=== PATIENT | male | born 1960 | race Caucasian/White ===

== ENCOUNTER 2018-08-12 20:00 | Inpatient (IN) | payer OTHER ==
[~2018-08-12] VITALS: Ht 172.7 cm; Wt 80.9 kg
--- NOTE | 2018-08-12 22:05 | ERD ---
ER Documentation Chief Complaint Chief Complaint Anx, hx of calling 911 for stroke, w/out telling facility but no s/s HPI 58-year-old male transferred by box bender from his care facility for evaluation of acute neurologic symptoms. Patient is a difficult historian providing limited insight. He states he had multiple strokes in the past which of felt the same as this one feels like. He states that he was feeling numbness in his face but mostly on the right side of his face as well as an abnormal feeling of movement in his right upper extremity. He had no headache and no difficulty speaking. He states that the symptoms have been ongoing for over 24 hours with his last known well time approximately August 11, 2018 at approximately 5 PM ROS All systems reviewed and are negative except as per history of present illness. Allergies Allergies: Coded Allergies: No Known Allergy (Unverified , 08/12/18) PMhx/Soc History of Surgery: Yes (L BKA, endorectomy ) Anesthesia Reaction: No Hx Neurological Disorder: Yes (stroke) Hx Respiratory Disorders: No Hx Cardiac Disorders: Yes Hx Psychiatric Problems: No Hx Miscellaneous Medical Probl: Yes (DM, bladder infrection, osteomilitis) Hx Alcohol Use: No Hx Substance Use: No Hx Tobacco Use: No Smoking Status: Never smoker FmHx Noncontributory for chief complaint Physical Exam Vitals Vital Signs Date Temp Pulse Resp B/P (MAP) Pulse Ox O2 O2 Flow FiO2 Time Delivery Rate 08/12/18 98.4 68 18 152/72 100 20:17 (98) Physical Exam GENERAL: The patient is well developed and appropriate for usual state of health in no apparent distress HEENT: Pupils equal, round, and reactive to light. EOMI. There is no scleral icterus. NECK: C-spine is soft and supple, there is no meningismus. There is no cervical lymphadenopathy. LUNGS: Clear to auscultation bilaterally. There are no rales, wheezes or rhonchi. HEART: Regular rate and rhythm, no murmurs, clicks, rubs or gallops. ABDOMEN: Soft, non-tender, non-distended. There are bowel sounds in all four quadrants. No rebound or guarding. EXTREMITIES: There is no peripheral cyanosis or edema. No focal swelling or erythema. Status post BKA of the left leg NEURO: Patient is awake and alert. There is a flexion contracture in the left upper extremity. Patient has a flexion contracture in the left lower extremity. The right upper extremity appears to move normally. The right lower extremity appears to move normally. SKIN: There is no apparent rash or petechiae. HEME/LYMPHATIC: There is no evidence of excessive bruising or lymphedema. PSYCHIATRIC: Patient has an anxious affect and demeanor. He has some insight with limited judgment. No agitation Result Diagram: 08/12/182140 Results 24 hrs Laboratory Tests Test 08/12/18 21:41 08/12/18 21:44 White Blood Count 7.2 10^3/ul Red Blood Count 3.33 10^6/ul Hemoglobin 9.9 g/dl Hematocrit 29.7 % Mean Corpuscular Volume 89.2 fl Mean Corpuscular Hemoglobin 29.7 pg Mean Corpuscular Hemoglobin Concent 33.3 g/dl Red Cell Distribution Width 12.7 % Platelet Count 258 10^3/UL Mean Platelet Volume 9.8 fl Immature Granulocytes % 0.400 % Neutrophils % 68.3 % Lymphocytes % 17.3 % Monocytes % 8.4 % Eosinophils % 5.0 % Basophils % 0.6 % Nucleated Red Blood Cells % 0.0 /100WBC Immature Granulocytes # 0.030 10^3/ul Neutrophils # 4.9 10^3/ul Lymphocytes # 1.2 10^3/ul Monocytes # 0.6 10^3/ul Eosinophils # 0.4 10^3/ul Basophils # 0.0 10^3/ul Nucleated Red Blood Cells # 0.0 10^3/ul Bedside Glucose 73 mg/dL Procedures/MDM Patient was taken to a room, seen and evaluated. Comfort measures were i nitiated. A stroke workup was initiated. As he was out of the 24-hour window, code stroke was not initiated Diagnostic tests were ordered and reviewed. 3 LEAD RHYTHM STRIP: Normal sinus rhythm without ectopy EK lead EKG reviewed by myself: Normal Sinus Rhythm Normal [place] and intervals No ST elevation, depression, or T wave inversion Impression: Normal EKG RADIOLOGY: Reviewed with the radiologist CONSULTATION: Hospitalist was notified for admission REEVALUATION: Diagnostic tests were appreciated. Patient remained unchanged neurologically MED[employer] DECISION MAKIN-year-old male with a history of multiple strokes in the past presents to the emergency department with acute neurologic symptoms. His symptoms are nonspecific and do not seem necessarily to be of central cause. However, given his history of ischemia I cannot rule this out entirely. This does appear to be mostly anxiety related, but he is easily calmed without significant intervention. Given his history, he will be admitted for observation for further neurologic diagnostic workup. Departure Diagnosis: Primary Impression: Anxiety Additional Impression: Weakness Condition: Fair GLORIA,JASON Aug 12, 2018 22:05
[2018-08-12] MEDS ORDERED: ACET325T45 PO (22:10)
[2018-08-12] MEDS ORDERED: AMLO5TAB4 PO (22:11)
[2018-08-12] MEDS ORDERED: ARGI1POW19 PO (22:12)
[2018-08-12] MEDS ORDERED: INSU100I33 SC (22:13)
[2018-08-12] MEDS ORDERED: ATOR-2 PO (22:13)
[2018-08-12] MEDS ORDERED: BISA10SU75 PR (22:14)
[2018-08-12] MEDS ORDERED: MAGN400O19 PO (22:14)
[2018-08-12] MEDS ORDERED: NA P230E RC (22:15)
[2018-08-12] MEDS ORDERED: CAPT50TA3 PO (22:16)
[2018-08-12] MEDS ORDERED: CARV25TA79 PO (22:17)
[2018-08-12] MEDS ORDERED: CRAN450T7 PO (22:18)
[2018-08-12] MEDS ORDERED: FAMO20TA18 PO (22:19)
[2018-08-12] MEDS ORDERED: DOCU-159 PO (22:19)
[2018-08-12] MEDS ORDERED: GABA300C16 PO (22:20)
[2018-08-12] MEDS ORDERED: SACC250C PO (22:20)
[2018-08-12] MEDS ORDERED: HEPA500021 IJ (22:21)
[2018-08-12] MEDS ORDERED: LEVO500T48 PO (22:22)
[2018-08-12] MEDS ORDERED: METF100010 PO (22:23)
[2018-08-12] MEDS ORDERED: MELA3TAB17 PO (22:23)
[2018-08-12] MEDS ORDERED: NITR0.4T32 SL (22:24)
[2018-08-12] MEDS ORDERED: MULT-105 PO (22:24)
[2018-08-12] MEDS ORDERED: HYDR-4011 PO (22:25)
[2018-08-12] MEDS ORDERED: OMEP20CA16 PO (22:26)
[2018-08-12] MEDS ORDERED: POLY17PO6 PO (22:26)
[2018-08-12] MEDS ORDERED: AMIN30LI PO (22:27)
[2018-08-12] MEDS ORDERED: SENN-120 PO (22:28)
[2018-08-12] MEDS ORDERED: TRAM50TA PO (22:29)
[2018-08-12] MEDS ORDERED: SERT25TA83 PO (22:29)
[2018-08-12] MEDS ORDERED: NACL 0.9% 3 ML SYG IV SCH (22:30)
[2018-08-12] MEDS ORDERED: DOCUSATE SODIUM 100 MG CAP PO PRN (22:30)
[2018-08-12] MEDS ORDERED: LORAZEPAM 2 MG INJ IV PRN (22:30)
[2018-08-12] MEDS ORDERED: ONDANSETRON 4 MG INJ IV PRN (22:30)
[2018-08-12] MEDS ORDERED: BISACODYL (EC) 5 MG TAB PO PRN (22:30)
[2018-08-12] MEDS ORDERED: ACETAMINOPHEN 325 MG TAB PO PRN (22:30)
[2018-08-12] MEDS ORDERED: TUBE5VIA3 ID (22:34)
[2018-08-12] MEDS ORDERED: VITA-123 SL (22:35)
[2018-08-12] MEDS ORDERED: ASC500 PO (22:36)
[2018-08-12] MEDS ORDERED: ZINC220T PO (22:36)
[2018-08-12] MEDS ORDERED: INSU100C SQ (22:41)
[2018-08-13] VITALS (11 sets, daily range): BP systolic 130–172; BP diastolic 61–77; PULSE 63–73; RESP 17–20; Ht 172.7 cm; Wt 80.9 kg
--- NOTE | 2018-08-13 03:45 | HP ---
Date/Time of Note Date/Time of Note DATE: 08/13/18 TIME: 03:30 Assessment/Plan VTE Prophylaxis SCD applied (from Ns): Yes Pharmacological prophylaxis: NA/contraindicated Pharm contraindication: low risk/ambulating Assessment/Plan Hospital Course This is a 58-year-old male being admitted to to the telemetry floor for observat ion for: #1 right upper extremity weakness: anxiety versus TIA/CVA. At the current time patient has regained right upper extremity strength and movement. He reports resolution of his facial numbness as well. Given his extensive stroke history and current symptoms as well as old CT brain findings, we will proceed with an MRI of the brain. Carotid Doppler ultrasound. Echocardiogram Doppler study. Permissive hypertension. Will check hemoglobin A1c, lipid panel, TSH, neurology consultation. #2 history of multiple CVAs: Patient has signs of old infarcts on CT brain. Patient has a history of left upper extremity contracture. Continue aspirin, statin, allow for permissive hypertension at the current time. #3 hypertension: We will hold patient's blood pressure medications, as needed hy dralazine for systolic greater than 220/120 #4 GRACE: unknown baseline creatine. hold KRISTEL inhibitor. Monitor renal function. avoid nsaids, nephrotoxins. #5 diabetes mellitus: We will check hemoglobin A1c, insulin sliding scale, resume home insulin regimen,, hold oral medications, patient is status post left BKA #6 hyperlipidemia: Continue statin #7 Normocytic anemia: no signs of acute bleeding. follow up outpatient #8 DVT GI prophylaxis: SCDs, no GI prophylaxis indicated Further treatment strategy will be implemented as per the clinical course. Result Diagram: 08/12/18214008/12/182140 Results 24hrs Laboratory Tests Test 08/12/18 21:40 08/12/18 21:41 08/12/18 21:44 Prothrombin Time 13.4 Prothrombin Time Ratio 1.0 INR International Normalized Ratio 1.01 Activated Partial Thromboplast Time 29.7 Hemoglobin A1c 5.3 White Blood Count 7.2 Red Blood Count 3.33 L Hemoglobin 9.9 L Hematocrit 29.7 L Mean Corpuscular Volume 89.2 Mean Corpuscular Hemoglobin 29.7 Mean Corpuscular Hemoglobin Concent 33.3 Red Cell Distribution Width 12.7 Platelet Count 258 Mean Platelet Volume 9.8 Immature Granulocytes % 0.400 Neutrophils % 68.3 Lymphocytes % 17.3 Monocytes % 8.4 Eosinophils % 5.0 Basophils % 0.6 Nucleated Red Blood Cells % 0.0 Immature Granulocytes # 0.030 Neutrophils # 4.9 Lymphocytes # 1.2 Monocytes # 0.6 Eosinophils # 0.4 Basophils # 0.0 Nucleated Red Blood Cells # 0.0 Sodium Level 142 Potassium Level 4.6 Chloride Level 111 H Carbon Dioxide Level 20 L Anion Gap 11 Blood Urea Nitrogen 41 H Creatinine 1.66 H Est Glomerular Filtrat Rate mL/min 43 L Glucose Level 69 L Calcium Level 9.6 Troponin I < 0.012 Triglycerides Level 62 Cholesterol Level 82 L LDL Cholesterol, Calculated 35 HDL Cholesterol 35 Cholesterol/HDL Ratio 2.3 Bedside Glucose 73 HPI/ROS Admit Date/Time Admit Date/Time Aug 12, 2018 at 22:06 Hx of Present Illness Chief complaint: Right-sided weakness Patient is a poor historian, the following history was obtained from ED physician documentation as well as from the patient. This is a 58-year-old male with a past medical history of multiple strokes as per him who presented from [facility] [place] complaining of symptoms of right upper extremity paralysis that occurred more than 24 hours ago on August 11 with a last known well time of approximately 5 PM on the day patient has a history of multiple strokes in the past according to him and with resultant left upper extr emity contracture. As per the ED physician documentation the patient has a history of calling 911 from the facility without the facility knowing. Patient also reported that he was noticing numbness in his face and lips. He did not have any change in his speech. Upon my examination of the patient at the bedside the patient is now able to move his right upper extremity and he continues to be able to move his right lower extremity. He also is able to move his left lower extremity. He does not have any facial drooping or any speech abnormalities. Allergies: NKDA Medications: See Jul Const: As per HPI Eyes : No pain discharge or redness or change in visual acuity ENT: No pain, sore throat, congestion, congestion, dysphagia or discharge Respiratory: No shortness of breath, cough, sputum, wheezing, or pleuritic pain Cardiovascular: No chest pain, palpitation, PND, or edema GI : no change in appetite, abdominal pain, nausea, vomiting, diarrhea, constipation, or change in the color his stool Genitourinary: No dysuria, hematuria, flank pain , discharge or CVA tenderness Musculoskeletal: No joint pain, back pain, neck pain, restricted range of motion in neck or joints Skin: No rash, bruising or hives Neuro: As per HPI Endocrine: No polyuria, polydipsia, temperature intolerance Psych: No hallucination, depression, anxiety or suicidal ideation PMH/Family/Social Past Medical History 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, hypertension, diabetes mellitus, hyperlipidemia, 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 Medications Current Medications IV Flush (NS 3 ml) 3 ml PER PROTOCOL IV ; Start 08/12/18 at 22:30 Lorazepam (Ativan) 0.5 mg Q6H PRN IV .ANXIETY; Start 08/12/18 at 22:30 Ondansetron HCl (Zofran Inj) 4 mg Q6H PRN IV NAUSEA/VOMITING; Start 08/12/18 at 22:30 Acetaminophen (Tylenol Tab) 650 mg Q6H PRN PO .PAIN 1-3 OR TEMP; Start 08/12/18 at 22:30 Docusate Sodium (Colace) 100 mg Q12H PRN PO .CONSTIPATION; Start 08/12/18 at 22:30 Bisacodyl (Dulcolax) 5 mg DAILY PRN PO .CONSTIPATION; Start 08/12/18 at 22:30 Coded Allergies: No Known Allergy (Unverified , 08/12/18) Past Surgical History Left BKA Family History Significant Family History: no pertinent family hx Social History Alcohol Use: none Smoking Status: Never smoker Drug Use: none Exam/Review of Systems Vital Signs Vitals Vital Signs Date Temp Pulse Resp B/P (MAP) Pulse Ox O2 O2 Flow FiO2 Time Delivery Rate 08/13/18 98.0 70 15 154/64 99 Room Air 01:41 (94) Exam Exam General: The patient is currently sitting in bed in no acute distress, he is conversive HEENT: Atraumatic, normocephalic. The pupils are equal, round and reactive. Extraocular motor are intact Neck: Supple with full range of motion. No rigidity or meningismus Lungs: Clear to auscultation bilaterally no crackles rales or wheezing Heart: Normal S1-S2, Regular rhythm and rate. Abdomen: Soft , nontender, nondistended , bowel sounds are present. No guarding no rebound tenderness , No masses or organomegaly. No costovertebral temporal angle mass Extremities: Left BKA Neurologic: Normal mental status, speech normal, strength 5 out of 5 in the right upper and lower extremities, patient is able to move his left lower extremity, his left upper extremity is contracted which is chronic Additional Comments EK lead EKG Normal Sinus Rhythm Normal [place] and intervals No ST elevation, depression, or T wave inversion Impression: Normal EKG PROCEDURE: CT Brain without contrast. CLINICAL INDICATION: Altered level of consciousness TECHNIQUE: A CT of the brain was performed on a multidetector CT scanner utilizing axial imaging from the skull base through the vertex without IV contrast. Multiplanar reformatted images were made. Images were reviewed on a PACS workstation. The CTDIvol is 37 mGy and the DLP is 634 mGycm. DICOM images are available. One or more of the following dose reduction techniques were utilized: 1.) Automated exposure control 2.) Adjustment of the mA +/- kV according to patient's size 3.) Use of iterative reconstruction technique. COMPARISON: None FINDINGS: There is moderate to severe diffuse cerebral volume loss with sulcal and ventricular dilatation. No discrete extra-axial fluid collection or masses seen. There is ex vacuo dilatation of the right lateral ventricle. Noted is an old right MCA distribution infarct with extensive encephalomalacia. There are is an old infarct in the inferior left cerebellar hemisphere. Periventricular white matter disease is seen in both cerebral hemispheres. There is no associated mass effect. No intracranial hemorrhage is seen. There is normal aeration of the visualized paranasal sinuses. The patient is status post right scleral banding. IMPRESSION: No intracranial hemorrhage, mass or evidence of acute transcortical infarct. Old right MCA distribution infarct with extensive encephalomalacia and ex vacuo dilatation of the right lateral ventricle. Old infarct inferior left cerebellar hemisphere. Atrophy. White matter disease compatible with chronic small vessel ischemia. .Clay Mariano MD, MD Date Time Electronically viewed and signed by .Clay aMriano MD, MD on 08/12/2018 20:57 .A/ CC: TRACEY CASTRO [id number] PROCEDURE: One view chest radiograph. CLINICAL INDICATION: Possible stroke TECHNIQUE: An AP view of the chest was obtained. The patient has forearm and fist clenched over the left chest COMPARISON: None. FINDINGS: Mediastinum: Median sternotomy wires Heart size: Normal. Pulmonary vasculature: No visible engorgement. Lungs: Clear. Costophrenic sulci: Clear. Bony structures: Grossly unremarkable for age. IMPRESSION: 1. Unremarkable single view chest. RPTAT:AAJJ Physician Noah Date Time Electronically viewed and signed by Physician Noah on 08/12/2018 21:19 GW/ CC: TRACEY CASTRO [id number] DAMON MARTIN Aug 13, 2018 03:40
[2018-08-13] MEDS ORDERED: INSULIN GLARGINE [LANTus] (100 UNITS/ML) SYG SC SCH ×2 (04:00)
[2018-08-13] MEDS ORDERED: GLUCOSE GEL 15 GRAM TUBE BUCCAL PRN (04:00)
[2018-08-13] MEDS ORDERED: hydrALAzine 20 MG INJ IV PRN (04:00)
[2018-08-13] MEDS ORDERED: DEXTROSE 50% 50 ML SYRINGE IV PRN ×2 (04:00)
[2018-08-13] MEDS ORDERED: GLUCAGON 1 MG INJ IM PRN (04:00)
[2018-08-13] MEDS ORDERED: MAGNESIUM HYDROXIDE 30ML CUP PO PRN (04:00)
[2018-08-13] MEDS ORDERED: INSULIN GLARGINE [LANtus] 3 ML PEN SC SCH (04:00)
[2018-08-13] MEDS ORDERED: GLUCOSE GEL 15 GRAM TUBE PO PRN ×2 (04:00)
[2018-08-13] MEDS ORDERED: BISACODYL 10 MG SUPP PR PRN (04:00)
[2018-08-13] MEDS ORDERED: SOD CHLORIDE 0.9% 500 ML IV ONE (04:30)
[2018-08-13] MEDS: traMADol 50 MG TAB PO PRN ×2 (04:48→09:02)
[2018-08-13] MEDS: INSULIN ASPART [NOVOLOG] 3 ML PEN SC SCH ×4 (08:00→20:16)
[2018-08-13] MEDS: GABAPENTIN 300 MG CAP PO SCH ×3 (09:00→20:15)
[2018-08-13] MEDS ORDERED: NON-FORMULARY/PATIENT OWN MED (Arginine/Ascorbate Sod/Vite AC (Arginaid Powder) 1 EACH) PO SCH (09:00)
[2018-08-13] MEDS ORDERED: NON-FORMULARY/PATIENT OWN MED (Amino Acids/Protein Hydrolys (Pro-Stat Liquid) 30 ML) PO SCH (09:00)
[2018-08-13] MEDS: SERTRALINE 50 MG TAB PO SCH (09:01)
[2018-08-13] MEDS: ZINC SULFATE 220 MG CAP PO SCH (09:01)
[2018-08-13] MEDS: DOCUSATE SODIUM 100 MG CAP PO SCH ×2 (09:01→20:16)
[2018-08-13] MEDS: SACCHAROMYCES BOULARDII 250 MG CAP PO SCH ×2 (09:02→20:15)
[2018-08-13] MEDS: POLYETHYLENE GLYCOL 17 GM PACKET PO SCH (09:02)
--- NOTE | 2018-08-13 11:02 | PN ---
Date/Time of Note Date/Time of Note DATE: 08/13/18 TIME: 10:39 Assessment/Plan VTE Prophylaxis SCD applied (from Nsg): Yes Pharmacological prophylaxis: heparin Lines/Catheters IV Catheter Type (from Nrsg): Saline Lock Urinary Cath still in place: No Assessment/Plan Hospital Course S: R sided weakness and numbness has resolved O: Constitutional: alert, oriented, no distressed Head: atraumatic, normocephalic Neck: non-tender, supple Respiratory: clear to auscultation Cardiovascular: regular rate and rhythm Gastrointestinal: S/ NT / ND / +BS Extremities: LUE is contracted with diffuse msc wasting LLE is s/p BKA, carleen still in place assessment and plan 58-year-old male with a past medical history of multiple strokes as per him who presented from [facility] complaining of symptoms of right upper extremity flaccidity and numbness that occurred more than 24 hours ago 1. TIA -symptoms are completely resolved at this time -patient is high risk for strokes and does have carotid aa disease, will need Vascular sx review 2. 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 -this was about 1 year ago, -needs MRA or CTA per vasc sx Dr Kim and then he can f/u with his own Vasc sx Dr Russell who w[place]ks [place] -Patient also has GRACE and will need Nephro review 3. 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 Severe PAD -s/p recent L BKA after multiple angiograms and toe amputations and recent treatment, completed 1 month ago for osteomyelitis in the stump -patient still has carleen in L stump -also on chronic [place] for phantom limb pain 5. remote smoker: quit about 1 year ago 6. GRACE on CKD ? -patient states he has CKD but still gets multiple contrast studies -will get Nephro consult -Creatinine improving Dispo: -Monitor Creatitine and discuss imaging options with Nephro (i.e MRA versus CTA) -per Dr Kim, if patient needs intervention, he will f/u with his surgeon Dr Russell at [place] Result Diagram: 08/13/18 0527 08/13/18 0527 Results 24hrs Laboratory Tests Test 08/12/18 21:40 08/12/18 21:41 08/12/18 21:44 08/13/18 04:40 Prothrombin Time 13.4 Prothrombin Time 1.0 Ratio INR International 1.01 Normalized Ratio Activated 29.7 Partial Thromboplast Time Hemoglobin A1c 5.3 White Blood Count 7.2 Red Blood Count 3.33 L Hemoglobin 9.9 L Hematocrit 29.7 L Mean Corpuscular 89.2 Volume Mean Corpuscular 29.7 Hemoglobin Mean Corpuscular 33.3 Hemoglobin Concent Red Cell 12.7 Distribution Width Platelet Count 258 Mean Platelet Volume 9.8 Immature 0.400 Granulocytes % Neutrophils % 68.3 Lymphocytes % 17.3 Monocytes % 8.4 Eosinophils % 5.0 Basophils % 0.6 Nucleated Red Blood 0.0 Cells % Immature 0.030 Granulocytes # Neutrophils # 4.9 Lymphocytes # 1.2 Monocytes # 0.6 Eosinophils # 0.4 Basophils # 0.0 Nucleated Red Blood 0.0 Cells # Sodium Level 142 Potassium Level 4.6 Chloride Level 111 H Carbon Dioxide Level 20 L Anion Gap 11 Blood Urea Nitrogen 41 H Creatinine 1.66 H Est Glomerular 43 L Filtrat Rate mL/min Glucose Level 69 L Calcium Level 9.6 Troponin I < 0.012 Triglycerides Level 62 Cholesterol Level 82 L LDL Cholesterol, 35 Calculated HDL Cholesterol 35 Cholesterol/HDL 2.3 Ratio Bedside Glucose 73 81 Test 08/13/18 05:27 08/13/18 06:10 08/13/18 08:08 White Blood Count 6.6 Red Blood Count 2.78 L Hemoglobin 8.1 L Hematocrit 24.7 L Mean Corpuscular 88.8 Volume Mean Corpuscular 29.1 Hemoglobin Mean Corpuscular 32.8 Hemoglobin Concent Red Cell 12.8 Distribution Width Platelet Count 220 Mean Platelet Volume 9.8 Immature 0.900 H Granulocytes % Neutrophils % 66.0 Lymphocytes % 19.5 Monocytes % 8.2 Eosinophils % 4.8 Basophils % 0.6 Nucleated Red Blood 0.0 Cells % Immature 0.060 H Granulocytes # Neutrophils # 4.4 Lymphocytes # 1.3 Monocytes # 0.5 Eosinophils # 0.3 Basophils # 0.0 Nucleated Red Blood 0.0 Cells # Sodium Level 143 Potassium Level 3.9 Chloride Level 111 H Carbon Dioxide Level 19 L Anion Gap 13 Blood Urea Nitrogen 37 H Creatinine 1.36 H Est Glomerular 54 L Filtrat Rate mL/min Glucose Level 89 Hemoglobin A1c 5.5 Calcium Level 8.5 Magnesium Level 1.5 L Total Bilirubin 0.1 L Direct Bilirubin 0.00 Indirect Bilirubin 0.1 Aspartate Amino 28 Transf (AST/SGOT) Alanine 32 Aminotransferase (AL T/SGPT) Alkaline Phosphatase 64 Total Protein 6.3 Albumin 3.0 L Globulin 3.30 H Albumin/Globulin 0.90 Ratio Thyroid Stimulating 1.750 Hormone (TSH) Urine Color YELLOW Urine Clarity CLEAR Urine pH 5.0 Urine Specific 1.013 [place] Urine Ketones NEGATIVE Urine Nitrite NEGATIVE Urine Bilirubin NEGATIVE Urine Urobilinogen NEGATIVE Urine Leukocyte NEGATIVE Esterase Urine Microscopic 0 RBC Urine Microscopic 5 WBC Urine Hemoglobin NEGATIVE Urine Glucose NEGATIVE Urine Total Protein 1+ H Urine Opiates Screen Positive Urine Barbiturates Negative Urine Amphetamines Negative Screen Urine Negative Benzodiazepines Screen Urine Cocaine Screen Negative Urine Cannabinoids Negative Bedside Glucose 86 Exam/Review of Systems Exam Vitals Vital Signs Date Temp Pulse Resp B/P (MAP) Pulse Ox O2 O2 Flow FiO2 Time Delivery Rate 08/13/18 98.7 68 18 134/63 98 Room Air 07:26 (86) Intake and Output 08/12/18 08/12/18 08/13/18 1515:00 23:00 07:00 IntakeIntake Total 500 ml OutputOutput Total 600 ml BalanceBalance -100 ml Results Results 24hrs Laboratory Tests Test 08/12/18 21:40 08/12/18 21:41 08/12/18 21:44 08/13/18 04:40 Prothrombin Time 13.4 Prothrombin Time 1.0 Ratio INR International 1.01 Normalized Ratio Activated 29.7 Partial Thromboplast Time Hemoglobin A1c 5.3 White Blood Count 7.2 Red Blood Count 3.33 L Hemoglobin 9.9 L Hematocrit 29.7 L Mean Corpuscular 89.2 Volume Mean Corpuscular 29.7 Hemoglobin Mean Corpuscular 33.3 Hemoglobin Concent Red Cell 12.7 Distribution Width Platelet Count 258 Mean Platelet Volume 9.8 Immature 0.400 Granulocytes % Neutrophils % 68.3 Lymphocytes % 17.3 Monocytes % 8.4 Eosinophils % 5.0 Basophils % 0.6 Nucleated Red Blood 0.0 Cells % Immature 0.030 Granulocytes # Neutrophils # 4.9 Lymphocytes # 1.2 Monocytes # 0.6 Eosinophils # 0.4 Basophils # 0.0 Nucleated Red Blood 0.0 Cells # Sodium Level 142 Potassium Level 4.6 Chloride Level 111 H Carbon Dioxide Level 20 L Anion Gap 11 Blood Urea Nitrogen 41 H Creatinine 1.66 H Est Glomerular 43 L Filtrat Rate mL/min Glucose Level 69 L Calcium Level 9.6 Troponin I < 0.012 Triglycerides Level 62 Cholesterol Level 82 L LDL Cholesterol, 35 Calculated HDL Cholesterol 35 Cholesterol/HDL 2.3 Ratio Bedside Glucose 73 81 Test 08/13/18 05:27 08/13/18 06:10 08/13/18 08:08 White Blood Count 6.6 Red Blood Count 2.78 L Hemoglobin 8.1 L Hematocrit 24.7 L Mean Corpuscular 88.8 Volume Mean Corpuscular 29.1 Hemoglobin Mean Corpuscular 32.8 Hemoglobin Concent Red Cell 12.8 Distribution Width Platelet Count 220 Mean Platelet Volume 9.8 Immature 0.900 H Granulocytes % Neutrophils % 66.0 Lymphocytes % 19.5 Monocytes % 8.2 Eosinophils % 4.8 Basophils % 0.6 Nucleated Red Blood 0.0 Cells % Immature 0.060 H Granulocytes # Neutrophils # 4.4 Lymphocytes # 1.3 Monocytes # 0.5 Eosinophils # 0.3 Basophils # 0.0 Nucleated Red Blood 0.0 Cells # Sodium Level 143 Potassium Level 3.9 Chloride Level 111 H Carbon Dioxide Level 19 L Anion Gap 13 Blood Urea Nitrogen 37 H Creatinine 1.36 H Est Glomerular 54 L Filtrat Rate mL/min Glucose Level 89 Hemoglobin A1c 5.5 Calcium Level 8.5 Magnesium Level 1.5 L Total Bilirubin 0.1 L Direct Bilirubin 0.00 Indirect Bilirubin 0.1 Aspartate Amino 28 Transf (AST/SGOT) Alanine 32 Aminotransferase (AL T/SGPT) Alkaline Phosphatase 64 Total Protein 6.3 Albumin 3.0 L Globulin 3.30 H Albumin/Globulin 0.90 Ratio Thyroid Stimulating 1.750 Hormone (TSH) Urine Color YELLOW Urine Clarity CLEAR Urine pH 5.0 Urine Specific 1.013 [place] Urine Ketones NEGATIVE Urine Nitrite NEGATIVE Urine Bilirubin NEGATIVE Urine Urobilinogen NEGATIVE Urine Leukocyte NEGATIVE Esterase Urine Microscopic 0 RBC Urine Microscopic 5 WBC Urine Hemoglobin NEGATIVE Urine Glucose NEGATIVE Urine Total Protein 1+ H Urine Opiates Screen Positive Urine Barbiturates Negative Urine Amphetamines Negative Screen Urine Negative Benzodiazepines Screen Urine Cocaine Screen Negative Urine Cannabinoids Negative Bedside Glucose 86 Imaging Imaging PROCEDURE: MR BRAIN WITHOUT CONTRAST CLINICAL INDICATION: 58-year-old male with altered level of consciousness. TECHNIQUE: An MRI of the brain was performed on a GE Signa HDxt 3T scanner utilizing the following sequences: Sagittal T1, axial T2, axial FLAIR, coronal gradient echo, sagittal FLAIR, axial T1 and axial EPI diffusion (b1000) with ADC maps. The images reviewed on a PACS workstation. COMPARISON: CT brain August 12, 2018 at 03:53 p.m. FINDINGS: There is extensive encephalomalacia and surrounding gliosis throughout the right hemisphere involving the frontal parietal, temporal and occipital regions most likely from prior right internal carotid artery infarct. There is ex vacuo dilatation of the right lateral ventricle. There is absence of the normal flow void identified within the right internal carotid throughout its course consistent with occlusion. There is focal encephalomalacia within the left inferior cerebellum consistent with a prior left posterior inferior cerebellar artery infarct. There is a smaller focal area of encephalomalacia within the medial aspect of the right inferior cerebellum consistent with a prior infarct. There is moderate prominence of the sulci and cisternal spaces consistent with volume loss with compensatory ventricular enlargement. There is no significant midline shift. There are periventricular, deep white matter and pontine foci of abnormal signal intensity on the T2-weighted and FLAIR sequences consistent with microangiopathic ischemic changes. There is no evidence for restricted diffusion to suggest an acute vascular event. There is no significant susceptibility artifact to suggest blood products. There is evidence for right globe scleral banding. There is minimal mucosal thickening within the ethmoid air cells bilaterally. No air-fluid levels are noted. IMPRESSION: 1. Old right internal carotid artery infarct with extensive encephalomalacia and gliosis throughout the right hemisphere. 2. Old bilateral focal inferior cerebellar infarcts more prominently on the left side. 3. Moderate diffuse volume loss. 4. Microangiopathic ischemic changes. 5. Occluded right internal carotid artery. 6. Prior right globe scleral banding. 7. Minimal mucosal thickening ethmoid air cells. .Rodolfo Brush MD, Date Time Electronically viewed and signed by .Rodolfo Brush MD, on 08/13/2018 03:23 .M/ CC: DAMON MARTIN [id number] Medications Medication Current Medications IV Flush (NS 3 ml) 3 ml PER PROTOCOL IV ; Start 08/12/18 at 22:30 Lorazepam (Ativan) 0.5 mg Q6H PRN IV .ANXIETY; Start 08/12/18 at 22:30 Ondansetron HCl (Zofran Inj) 4 mg Q6H PRN IV NAUSEA/VOMITING; Start 08/12/18 at 22:30 Acetaminophen (Tylenol Tab) 650 mg Q6H PRN PO .PAIN 1-3 OR TEMP; Start 08/12/18 at 22:30 Docusate Sodium (Colace) 100 mg Q12H PRN PO .CONSTIPATION; Start 08/12/18 at 22:30 Bisacodyl (Dulcolax) 5 mg DAILY PRN PO .CONSTIPATION; Start 08/12/18 at 22:30 Atorvastatin Calcium (Lipitor) 80 mg QHS PO ; Start 08/13/18 at 21:00 Bisacodyl (Dulcolax Supp) 10 mg Q24H PRN [place] NEEDED; Start 08/13/18 at 04:00 Docusate Sodium (Colace) 100 mg BID PO Last administered on 08/13/18at 09:01; Admin Dose 100 MG; Start 08/13/18 at 09:00 Famotidine (Pepcid) 20 mg QHS PO ; Start 08/13/18 at 21:00 Gabapentin (Neurontin) 600 mg TID PO Last administered on 08/13/18at 09:00; Admin Dose 600 MG; Start 08/13/18 at 09:00 Magnesium Hydroxide (Milk Of Mag) 30 ml Q24H PRN PO NEEDED; Start 08/13/18 at 04:00 Polyethylene Glycol (Miralax) 17 gm DAILY PO Last administered on 08/13/18at 09:02; Admin Dose 17 GM; Start 08/13/18 at 09:00 Saccharomyces Boulardii (Florastor) 250 mg BID PO Last administered on 08/13/18at 09:02; Admin Dose 250 MG; Start 08/13/18 at 09:00 Senna (Senokot) 1 tab QHS PO ; Start 08/13/18 at 21:00 Sertraline HCl (Zoloft) 25 mg DAILY PO Last administered on 08/13/18at 09:01; Admin Dose 25 MG; Start 08/13/18 at 09:00 Tramadol HCl (Ultram) 50 mg Q4H PRN PO PAIN LEVEL 4-7/10 Last administered on 08/13/18at 09:02; Admin Dose 50 MG; Start 08/13/18 at 04:00 Zinc Sulfate (Zinc Sulfate) 220 mg DAILY PO Last administered on 08/13/18at 09:01; Admin Dose 220 MG; Start 08/13/18 at 09:00 Diagnostic Test (Pha) (Accu-Chek) 1 ea 02 XX ; Start 08/14/18 at 02:00 Insulin Aspart (Novolog Insulin Pen) NOVOLOG *MILD* ALGORITHM WITH MEALS BEDTIME SC ; Start 08/13/18 at 08:00 Hydralazine HCl (Apresoline) 10 mg Q4H PRN IV ELEVATED BLOOD PRESSURE; Start 08/13/18 at 04:00 Miscellaneous Information 1 ea NOTE XX ; Start 08/13/18 at 04:00 Glucose (Glutose) 15 gm Q15M PRN PO DECREASED GLUCOSE; Start 08/13/18 at 04:00 Glucose (Glutose) 22.5 gm Q15M PRN PO DECREASED GLUCOSE; Start 08/13/18 at 04:00 Dextrose (D50w Syringe) 25 ml Q15M PRN IV DECREASED GLUCOSE; Start 08/13/18 at 04:00 Dextrose (D50w Syringe) 50 ml Q15M PRN IV DECREASED GLUCOSE; Start 08/13/18 at 04:00 Glucagon (Glucagen) 1 mg Q15M PRN IM DECREASED GLUCOSE; Start 08/13/18 at 04:00 Glucose (Glutose) 15 gm Q15M PRN BUCCAL DECREASED GLUCOSE; Start 08/13/18 at 04:00 Insulin Glargine (Lantus) 21 units Q12 SC ; Start 08/13/18 at 04:00 BRIAN ALLEN Aug 13, 2018 10:50
[2018-08-13] MEDS ORDERED: MAGNESIUM SULFATE 2 GM/50 ML 50 ML IVPB ONE (11:30)
--- NOTE | 2018-08-13 12:23 | CONS ---
Assessment/Plan Assessment/Plan Assessment/Plan (Daily) CVA Occluded right internal carotid artery 50-69% stenosis in the left internal carotid artery Status post right carotid endarterectomy Renal failure Peripheral vascular disease Villavicencio will need a CT angiogram or an MRA of the carotid artery to fully evaluate the left internal carotid artery This should be done after renal clearance Consultation Date/Type/Reason Admit Date/Time Aug 12, 2018 at 22:06 Date of Consultation: Aug 13, 2018 Type of Consult Vascular surgery Reason for Consultation Carotid stenosis Date/Time of Note DATE: 08/13/18 TIME: 12:19 Hx of Present Illness 8-year-old male status post right carotid endarterectomy patient is now being a dmitted because of weakness in the right upper extremity ultrasound has been done which shows occlusion of the right internal carotid artery and a 50-69% stenosis of the left internal carotid artery patient has a history of peripheral vascular disease status post recent left below-knee amputation and has renal failure as well and has had multiple CVAs in the past ENT: no complaints Respiratory: no complaints Cardiovascular: no complaints Gastrointestinal: no complaints Genitourinary: no complaints Musculoskeletal: no complaints Skin: no complaints Past Medical History Home Meds Reported Medications Insulin Lispro (Humalog) 100 Unit/1 Ml Cartridge, 0 SQ SLIDING SCALE, EA IF BS 60-149=0 UNIT<60,HYPOGLYCEMIC PROTOCOL AND CALL MD. IF BS 150-199=2 UNITS,200-249=4 UNITS,250-299=6 UNITS,300-349=8 UNITS,350-399=10 UNITS,400+=12 UNITS AND CALL MD. 08/12/18 Zinc Sulfate* (Zinc Sulfate*) 220 Mg Tablet, 220 MG PO DAILY, TAB END DATE 09/12/18 08/12/18 Ascorbic Acid (Vitamin C) 500 Mg Tab, 500 MG PO BID, TAB 08/12/18 Vitamin A Acetate (Vitamin A) 10,000 Unit Tab.subl, 87770 UNIT SL DAILY 08/12/18 Tuberculin,Purif.prot.deriv. (Tubersol) 5 Tub Unit/0.1 Ml Vial, 5 TUB ID Q 10 DAYS, VIAL FOR 11 DAYS READ IN 48HOURS, IF NEGATIVE 2 STEP IN 7 DAYS FROM FIRST DOSE. START DATE 08/07/18 AND END DATE 08/18/18 08/12/18 Tramadol Hcl* (Ultram*) 50 Mg Tablet, 50 MG PO Q4H PRN for PAIN LEVEL 4-7/10, TAB 08/12/18 Sertraline Hcl* (Sertraline Hcl*) 25 Mg Tablet, 25 MG PO DAILY, #30 TAB 08/12/18 Sennosides* (Senna Lax*) 8.6 Mg Tablet, 1 TAB PO QHS, TAB 08/12/18 Amino Acids/Protein Hydrolys (PRO-STAT LIQUID) 30 Ml Liquid.pkt, 30 ML PO DAILY SUGAR FREE 08/12/18 Polyethylene Glycol* (Miralax*) 17 Gm Powd.pack, 17 GM PO DAILY, #30 PACKET 08/12/18 Omeprazole* (Omeprazole*) 20 Mg Capsule.dr, 20 MG PO BID, #60 CAP 08/12/18 Hydrocodone/Acetaminophen ([place] 5-325 Tablet) 1 Each Tablet, 1 EACH PO Q4H for PAIN 8-1010, TAB 08/12/18 Nitroglycerin* (Nitroglycerin* SL) 0.4 Mg Tab.subl, 0.4 MG SL Q5MIN PRN for CHEST PAIN, BOTTLE 08/12/18 Multivitamin with Minerals (Multivitamins with Minerals) 1 Each Tablet, 1 EACH PO DAILY, TAB 08/12/18 Metformin Hcl* (Metformin Hcl*) 1,000 Mg Tablet, 1000 MG PO WITH BREAKFAST DINNE, #60 TAB 08/12/18 Melatonin (Melatonin) 3 Mg Tablet.sa, 6 MG PO HS, TAB.SA 08/12/18 Levofloxacin* (Levaquin*) 500 Mg Tablet, 500 MG PO QPM, TAB FOR 7 DAYS,END DATE 08/14/18 08/12/18 Heparin Sodium,Porcine/Pf (HEPARIN SOD 5,000 UNIT/ 0.5 ML) 5,000 Unit/0.5 Ml Vial, 5000 UNIT IJ Q12H, VIAL 08/12/18 Gabapentin* (Gabapentin*) 300 Mg Capsule, 600 MG PO TID, #180 CAP 08/12/18 Saccharomyces Boulardii* (Florastor*) 250 Mg Cap, 250 MG PO BID, CAP 08/12/18 Famotidine* (Famotidine*) 20 Mg Tablet, 20 MG PO QHS, #30 TAB 08/12/18 Docusate Sodium* (Docusate Sodium*) 100 Mg Capsule, 100 MG PO BID, #60 CAP 08/12/18 Cranberry Fruit (CRANBERRY) 450 Mg Tablet, 450 MG PO DAILY, TAB 08/12/18 Carvedilol* (Carvedilol*) 25 Mg Tablet, 25 MG PO BID, #60 TAB HOLD FOR SBP<110 OR HR<60 08/12/18 Captopril* (Captopril*) 50 Mg Tablet, 50 MG PO TID, #90 TAB 08/12/18 Na Phos,M-B/Na Phos,Di-Ba (Fleet Enema Extra) Unknown Strength Enema, 118 ML RC Q 3RD D, ENEMA 08/12/18 Bisacodyl* (Bisacodyl*) 10 Mg Supp, 10 MG IN Q24H PRN for NEEDED, SUPP 08/12/18 Magnesium Hydroxide* (Milk Of Magnesia*) 400 Mg/5 Ml Oral.susp, 30 ML PO Q24H PRN for NEEDED, ML 08/12/18 Insulin Glargine,Hum.rec.anlog (Basaglar Kwikpen U-100) 100 Unit/1 Ml Insuln.pen, 21 UNIT SC Q12H, EA 08/12/18 Atorvastatin* (Atorvastatin*) 80 Mg Tablet, 80 MG PO QHS, #30 TAB 08/12/18 Arginine/Ascorbate Sod/Joan AC (Arginaid Powder) 1 Each Powd.pack, 1 EACH PO BID 08/12/18 Amlodipine Besylate* (Norvasc*) 5 Mg Tablet, 5 MG PO QHS, TAB HOLD FOR SBP<110 08/12/18 Acetaminophen* (Acetaminophen*) 325 Mg Tablet, 650 MG PO Q4H PRN for MILD PAIN LEVEL 1-3, #30 TAB 08/12/18 Medications Current Medications IV Flush (NS 3 ml) 3 ml PER PROTOCOL IV ; Start 08/12/18 at 22:30 Lorazepam (Ativan) 0.5 mg Q6H PRN IV .ANXIETY; Start 08/12/18 at 22:30 Ondansetron HCl (Zofran Inj) 4 mg Q6H PRN IV NAUSEA/VOMITING; Start 08/12/18 at 22:30 Acetaminophen (Tylenol Tab) 650 mg Q6H PRN PO .PAIN 1-3 OR TEMP; Start 08/12/18 at 22:30 Docusate Sodium (Colace) 100 mg Q12H PRN PO .CONSTIPATION; Start 08/12/18 at 22:30 Bisacodyl (Dulcolax) 5 mg DAILY PRN PO .CONSTIPATION; Start 08/12/18 at 22:30 Atorvastatin Calcium (Lipitor) 80 mg QHS PO ; Start 08/13/18 at 21:00 Bisacodyl (Dulcolax Supp) 10 mg Q24H PRN IN NEEDED; Start 08/13/18 at 04:00 Docusate Sodium (Colace) 100 mg BID PO Last administered on 08/13/18at 09:01; Admin Dose 100 MG; Start 08/13/18 at 09:00 Famotidine (Pepcid) 20 mg QHS PO ; Start 08/13/18 at 21:00 Gabapentin (Neurontin) 600 mg TID PO Last administered on 08/13/18at 09:00; Admin Dose 600 MG; Start 08/13/18 at 09:00 Magnesium Hydroxide (Milk Of Mag) 30 ml Q24H PRN PO NEEDED; Start 08/13/18 at 04:00 Polyethylene Glycol (Miralax) 17 gm DAILY PO Last administered on 08/13/18at 09:02; Admin Dose 17 GM; Start 08/13/18 at 09:00 Saccharomyces Boulardii (Florastor) 250 mg BID PO Last administered on 08/13/18at 09:02; Admin Dose 250 MG; Start 08/13/18 at 09:00 Senna (Senokot) 1 tab QHS PO ; Start 08/13/18 at 21:00 Sertraline HCl (Zoloft) 25 mg DAILY PO Last administered on 08/13/18at 09:01; Admin Dose 25 MG; Start 08/13/18 at 09:00 Tramadol HCl (Ultram) 50 mg Q4H PRN PO PAIN LEVEL 4-7/10 Last administered on 08/13/18at 09:02; Admin Dose 50 MG; Start 08/13/18 at 04:00 Zinc Sulfate (Zinc Sulfate) 220 mg DAILY PO Last administered on 08/13/18at 09:01; Admin Dose 220 MG; Start 08/13/18 at 09:00 Diagnostic Test (Pha) (Accu-Chek) 1 ea 02 XX ; Start 08/14/18 at 02:00 Insulin Aspart (Novolog Insulin Pen) NOVOLOG *MILD* ALGORITHM WITH MEALS BEDTIME SC ; Start 08/13/18 at 08:00 Hydralazine HCl (Apresoline) 10 mg Q4H PRN IV ELEVATED BLOOD PRESSURE; Start 08/13/18 at 04:00 Miscellaneous Information 1 ea NOTE XX ; Start 08/13/18 at 04:00 Glucose (Glutose) 15 gm Q15M PRN PO DECREASED GLUCOSE; Start 08/13/18 at 04:00 Glucose (Glutose) 22.5 gm Q15M PRN PO DECREASED GLUCOSE; Start 08/13/18 at 04:00 Dextrose (D50w Syringe) 25 ml Q15M PRN IV DECREASED GLUCOSE; Start 08/13/18 at 04:00 Dextrose (D50w Syringe) 50 ml Q15M PRN IV DECREASED GLUCOSE; Start 08/13/18 at 04:00 Glucagon (Glucagen) 1 mg Q15M PRN IM DECREASED GLUCOSE; Start 08/13/18 at 04:00 Glucose (Glutose) 15 gm Q15M PRN BUCCAL DECREASED GLUCOSE; Start 08/13/18 at 04:00 Magnesium Sulfate 50 ml @ 25 mls/hr ONCE ONCE IVPB ; Start 08/13/18 at 11:30; Stop 08/13/18 at 13:29 Morphine Sulfate (morphine) 2 mg Q4H PRN IV SEVERE PAIN LEVEL 7-10; Start 08/13/18 at 12:00; Status UNV Allergies: Coded Allergies: No Known Allergy (Unverified , 08/12/18) Social History Alcohol Use: none Smoking Status: Never smoker Drug Use: none Exam/Review of Systems Exam Vitals Vital Signs Date Temp Pulse Resp B/P (MAP) Pulse Ox O2 O2 Flow FiO2 Time Delivery Rate 08/13/18 98.0 67 18 172/77 100 Room Air 11:49 (108) Intake and Output 08/12/18 08/12/18 08/13/18 1515:00 23:00 07:00 IntakeIntake Total 500 ml OutputOutput Total 600 ml BalanceBalance -100 ml Eyes: nl conjunctiva, EOMI, nl lids, nl sclera, PERRL ENMT: nl external ears & nose, nl lips & teeth, nl nasal mucosa & septum Neck: supple, non-tender Respiratory: clear to auscultation, normal air movement Cardiovascular: regular rate and rhythm, nl pulses Gastrointestinal: soft, nl liver, spleen, non-tender Extremities: normal pulses Additional Comments Below-knee amputation noted with carleen intact Right carotid endarterectomy scar present Results Result Diagram: 08/13/1852608/[id number]/18526 Results 24hrs Laboratory Tests Test 08/12/18 21:40 08/12/18 21:41 08/12/18 21:44 08/13/18 04:40 Prothrombin Time 13.4 Prothrombin Time 1.0 Ratio INR International 1.01 Normalized Ratio Activated 29.7 Partial Thromboplast Time Hemoglobin A1c 5.3 White Blood Count 7.2 Red Blood Count 3.33 L Hemoglobin 9.9 L Hematocrit 29.7 L Mean Corpuscular 89.2 Volume Mean Corpuscular 29.7 Hemoglobin Mean Corpuscular 33.3 Hemoglobin Concent Red Cell 12.7 Distribution Width Platelet Count 258 Mean Platelet Volume 9.8 Immature 0.400 Granulocytes % Neutrophils % 68.3 Lymphocytes % 17.3 Monocytes % 8.4 Eosinophils % 5.0 Basophils % 0.6 Nucleated Red Blood 0.0 Cells % Immature 0.030 Granulocytes # Neutrophils # 4.9 Lymphocytes # 1.2 Monocytes # 0.6 Eosinophils # 0.4 Basophils # 0.0 Nucleated Red Blood 0.0 Cells # Sodium Level 142 Potassium Level 4.6 Chloride Level 111 H Carbon Dioxide Level 20 L Anion Gap 11 Blood Urea Nitrogen 41 H Creatinine 1.66 H Est Glomerular 43 L Filtrat Rate mL/min Glucose Level 69 L Calcium Level 9.6 Troponin I < 0.012 Triglycerides Level 62 Cholesterol Level 82 L LDL Cholesterol, 35 Calculated HDL Cholesterol 35 Cholesterol/HDL 2.3 Ratio Bedside Glucose 73 81 Test 08/13/18 05:27 08/13/18 06:10 08/13/18 08:08 08/13/18 11:40 White Blood Count 6.6 Red Blood Count 2.78 L Hemoglobin 8.1 L Hematocrit 24.7 L Mean Corpuscular 88.8 Volume Mean Corpuscular 29.1 Hemoglobin Mean Corpuscular 32.8 Hemoglobin Concent Red Cell 12.8 Distribution Width Platelet Count 220 Mean Platelet Volume 9.8 Immature 0.900 H Granulocytes % Neutrophils % 66.0 Lymphocytes % 19.5 Monocytes % 8.2 Eosinophils % 4.8 Basophils % 0.6 Nucleated Red Blood 0.0 Cells % Immature 0.060 H Granulocytes # Neutrophils # 4.4 Lymphocytes # 1.3 Monocytes # 0.5 Eosinophils # 0.3 Basophils # 0.0 Nucleated Red Blood 0.0 Cells # Sodium Level 143 Potassium Level 3.9 Chloride Level 111 H Carbon Dioxide Level 19 L Anion Gap 13 Blood Urea Nitrogen 37 H Creatinine 1.36 H Est Glomerular 54 L Filtrat Rate mL/min Glucose Level 89 Hemoglobin A1c 5.5 Calcium Level 8.5 Magnesium Level 1.5 L Total Bilirubin 0.1 L Direct Bilirubin 0.00 Indirect Bilirubin 0.1 Aspartate Amino 28 Transf (AST/SGOT) Alanine 32 Aminotransferase (AL T/SGPT) Alkaline Phosphatase 64 Total Protein 6.3 Albumin 3.0 L Globulin 3.30 H Albumin/Globulin 0.90 Ratio Thyroid Stimulating 1.750 Hormone (TSH) Urine Color YELLOW Urine Clarity CLEAR Urine pH 5.0 Urine Specific 1.013 [place] Urine Ketones NEGATIVE Urine Nitrite NEGATIVE Urine Bilirubin NEGATIVE Urine Urobilinogen NEGATIVE Urine Leukocyte NEGATIVE Esterase Urine Microscopic 0 RBC Urine Microscopic 5 WBC Urine Hemoglobin NEGATIVE Urine Glucose NEGATIVE Urine Total Protein 1+ H Urine Opiates Screen Positive Urine Barbiturates Negative Urine Amphetamines Negative Screen Urine Negative Benzodiazepines Screen Urine Cocaine Screen Negative Urine Cannabinoids Negative Bedside Glucose 86 93 Medications Medication Current Medications IV Flush (NS 3 ml) 3 ml PER PROTOCOL IV ; Start 08/12/18 at 22:30 Lorazepam (Ativan) 0.5 mg Q6H PRN IV .ANXIETY; Start 08/12/18 at 22:30 Ondansetron HCl (Zofran Inj) 4 mg Q6H PRN IV NAUSEA/VOMITING; Start 08/12/18 at 22:30 Acetaminophen (Tylenol Tab) 650 mg Q6H PRN PO .PAIN 1-3 OR TEMP; Start 08/12/18 at 22:30 Docusate Sodium (Colace) 100 mg Q12H PRN PO .CONSTIPATION; Start 08/12/18 at 22:30 Bisacodyl (Dulcolax) 5 mg DAILY PRN PO .CONSTIPATION; Start 08/12/18 at 22:30 Atorvastatin Calcium (Lipitor) 80 mg QHS PO ; Start 08/13/18 at 21:00 Bisacodyl (Dulcolax Supp) 10 mg Q24H PRN IN NEEDED; Start 08/13/18 at 04:00 Docusate Sodium (Colace) 100 mg BID PO Last administered on 08/13/18at 09:01; Admin Dose 100 MG; Start 08/13/18 at 09:00 Famotidine (Pepcid) 20 mg QHS PO ; Start 08/13/18 at 21:00 Gabapentin (Neurontin) 600 mg TID PO Last administered on 08/13/18at 09:00; Admin Dose 600 MG; Start 08/13/18 at 09:00 Magnesium Hydroxide (Milk Of Mag) 30 ml Q24H PRN PO NEEDED; Start 08/13/18 at 04:00 Polyethylene Glycol (Miralax) 17 gm DAILY PO Last administered on 08/13/18at 09:02; Admin Dose 17 GM; Start 08/13/18 at 09:00 Saccharomyces Boulardii (Florastor) 250 mg BID PO Last administered on 08/13/18at 09:02; Admin Dose 250 MG; Start 08/13/18 at 09:00 Senna (Senokot) 1 tab QHS PO ; Start 08/13/18 at 21:00 Sertraline HCl (Zoloft) 25 mg DAILY PO Last administered on 08/13/18at 09:01; Admin Dose 25 MG; Start 08/13/18 at 09:00 Tramadol HCl (Ultram) 50 mg Q4H PRN PO PAIN LEVEL 4-7/10 Last administered on 08/13/18at 09:02; Admin Dose 50 MG; Start 08/13/18 at 04:00 Zinc Sulfate (Zinc Sulfate) 220 mg DAILY PO Last administered on 08/13/18at 09:01; Admin Dose 220 MG; Start 08/13/18 at 09:00 Diagnostic Test (Pha) (Accu-Chek) 1 ea 02 XX ; Start 08/14/18 at 02:00 Insulin Aspart (Novolog Insulin Pen) NOVOLOG *MILD* ALGORITHM WITH MEALS BEDTIME SC ; Start 08/13/18 at 08:00 Hydralazine HCl (Apresoline) 10 mg Q4H PRN IV ELEVATED BLOOD PRESSURE; Start 08/13/18 at 04:00 Miscellaneous Information 1 ea NOTE XX ; Start 08/13/18 at 04:00 Glucose (Glutose) 15 gm Q15M PRN PO DECREASED GLUCOSE; Start 08/13/18 at 04:00 Glucose (Glutose) 22.5 gm Q15M PRN PO DECREASED GLUCOSE; Start 08/13/18 at 04:00 Dextrose (D50w Syringe) 25 ml Q15M PRN IV DECREASED GLUCOSE; Start 08/13/18 at 04:00 Dextrose (D50w Syringe) 50 ml Q15M PRN IV DECREASED GLUCOSE; Start 08/13/18 at 04:00 Glucagon (Glucagen) 1 mg Q15M PRN IM DECREASED GLUCOSE; Start 08/13/18 at 04:00 Glucose (Glutose) 15 gm Q15M PRN BUCCAL DECREASED GLUCOSE; Start 08/13/18 at 04:00 Magnesium Sulfate 50 ml @ 25 mls/hr ONCE ONCE IVPB ; Start 08/13/18 at 11:30; Stop 08/13/18 at 13:29 Morphine Sulfate (morphine) 2 mg Q4H PRN IV SEVERE PAIN LEVEL 7-10; Start 08/13/18 at 12:00; Status UNV MALEMILO CARLIN MD Aug 13, 2018 12:23
[2018-08-13] MEDS: morphine 2 MG INJ IV PRN ×2 (14:36→20:36)
--- NOTE | 2018-08-13 15:17 | CONS ---
Assessment/Plan Assessment/Plan Hospital Course 58 yo M with hx of multiple strokes, L BKA and other comorbidities who presents for evaluation of R sided weakness and numbness x several hours... for which neurology is consulted. The clinical picture was most ominously concerning for acute stroke; MRI brain is, though, reassuringly without acute intracranial pathology.. Recrudescence in the context of acute toxic-metabolic dysfunction is additionally considered.. Somatization is a Dx of exclusion... MRI/CUS is notable for R ICA occlusion..and severe L ICA stenosis. P: Start asa daily for secondary stroke prevention; lipids are at goal.. PT/OT/ST as necessary Other medical management and supportive care per primary Vascular surgery evaluation of asymptomatic L carotid stenosis; which may be done as an outpatient Will follow clinically Consultation Date/Type/Reason Admit Date/Time Aug 12, 2018 at 22:06 Type of Consult Neurology Reason for Consultation right hemiparesis Requesting Provider: BRIAN ALLEN Date/Time of Note DATE: 08/13/18 TIME: 15:17 Hx of Present Illness The pt is a limited historian. The pt endorses R sided weakness and BL face numbness. The duration of events is unclear. It is elsewhere noted: Hx of Present Illness Chief complaint: Right-sided weakness Patient is a poor historian, the following history was obtained from ED physician documentation as well as from the patient. This is a 58-year-old male with a past medical history of multiple strokes as per him who presented from [facility] complaining of symptoms of right upper extremity paralysis that occurred more than 24 hours ago on August 11 with a last known well time of approximately 5 PM on the day patient has a history of multiple strokes in the past according to him and with resultant left upper extremity contracture. As per the ED physician documentation the patient has a history of calling 911 from the facility without the facility knowing. Patient also reported that he was noticing numbness in his face and lips. He did not have any change in his speech. Upon my examination of the patient at the bedside the patient is now able to move his right upper extremity and he continues to be able to move his right lower extremity. He also is able to move his left lower extremity. He does not have any facial drooping or any speech abnormalities. negative unless noted otherwise in HPI Exam/Review of Systems Exam Vitals Vital Signs Date Temp Pulse Resp B/P (MAP) Pulse Ox O2 O2 Flow FiO2 Time Delivery Rate 08/13/18 67 12:00 08/13/18 98.0 18 172/77 100 Room Air 11:49 (108) Intake and Output 08/12/18 08/12/18 08/13/18 1515:00 23:00 07:00 IntakeIntake Total 500 ml OutputOutput Total 600 ml BalanceBalance -100 ml Exam PE: Gen Appearance: No Apparent Distress HEENT: Normocephalic Cardiovascular: Regular rate Lungs: Clear bilaterally Abdomen: Soft Extremities: L BKA NE: The patient was alert and grossly oriented. Language was normal. Thought process not quite linear. Fund of knowledge was adequate. Pupils were equal and reactive to light. There was no afferent pupillary defect. Visual kumar were normal. Funduscopic examination was limited. Extra-ocular movements were full. Ptosis was absent. There was no nystagmus. Facial sensation was normal. Face was symmetric with normal strength. Hearing was intact. Palate movements were normal. Neck strength was normal. There was normal tongue bulk and speed of movement. Tone was normal. Muscle bulk was normal. I did not see fasciculations. Arms and R leg was strong. Vibration sensation was normal. Temperature and pinprick sensation was normal. Rapid alternating movements were normal. There was no dysmetria. There was no intention tremor. Gait was deferred due to bedrest. Arm and leg reflexes were wnl, where they could be elicited.. Cabrera's sign was absent. Plantar response was flexor. Results Result Diagram: 08/13/18 0527 08/13/18 0527 Results 24hrs Laboratory Tests Test 08/12/18 21:40 08/12/18 21:41 08/12/18 21:44 08/13/18 04:40 Prothrombin Time 13.4 Prothrombin Time 1.0 Ratio INR International 1.01 Normalized Ratio Activated 29.7 Partial Thromboplast Time Hemoglobin A1c 5.3 White Blood Count 7.2 Red Blood Count 3.33 L Hemoglobin 9.9 L Hematocrit 29.7 L Mean Corpuscular 89.2 Volume Mean Corpuscular 29.7 Hemoglobin Mean Corpuscular 33.3 Hemoglobin Concent Red Cell 12.7 Distribution Width Platelet Count 258 Mean Platelet Volume 9.8 Immature 0.400 Granulocytes % Neutrophils % 68.3 Lymphocytes % 17.3 Monocytes % 8.4 Eosinophils % 5.0 Basophils % 0.6 Nucleated Red Blood 0.0 Cells % Immature 0.030 Granulocytes # Neutrophils # 4.9 Lymphocytes # 1.2 Monocytes # 0.6 Eosinophils # 0.4 Basophils # 0.0 Nucleated Red Blood 0.0 Cells # Sodium Level 142 Potassium Level 4.6 Chloride Level 111 H Carbon Dioxide Level 20 L Anion Gap 11 Blood Urea Nitrogen 41 H Creatinine 1.66 H Est Glomerular 43 L Filtrat Rate mL/min Glucose Level 69 L Calcium Level 9.6 Troponin I < 0.012 Triglycerides Level 62 Cholesterol Level 82 L LDL Cholesterol, 35 Calculated HDL Cholesterol 35 Cholesterol/HDL 2.3 Ratio Bedside Glucose 73 81 Test 08/13/18 05:27 08/13/18 06:10 08/13/18 08:08 08/13/18 11:40 White Blood Count 6.6 Red Blood Count 2.78 L Hemoglobin 8.1 L Hematocrit 24.7 L Mean Corpuscular 88.8 Volume Mean Corpuscular 29.1 Hemoglobin Mean Corpuscular 32.8 Hemoglobin Concent Red Cell 12.8 Distribution Width Platelet Count 220 Mean Platelet Volume 9.8 Immature 0.900 H Granulocytes % Neutrophils % 66.0 Lymphocytes % 19.5 Monocytes % 8.2 Eosinophils % 4.8 Basophils % 0.6 Nucleated Red Blood 0.0 Cells % Immature 0.060 H Granulocytes # Neutrophils # 4.4 Lymphocytes # 1.3 Monocytes # 0.5 Eosinophils # 0.3 Basophils # 0.0 Nucleated Red Blood 0.0 Cells # Sodium Level 143 Potassium Level 3.9 Chloride Level 111 H Carbon Dioxide Level 19 L Anion Gap 13 Blood Urea Nitrogen 37 H Creatinine 1.36 H Est Glomerular 54 L Filtrat Rate mL/min Glucose Level 89 Hemoglobin A1c 5.5 Calcium Level 8.5 Magnesium Level 1.5 L Total Bilirubin 0.1 L Direct Bilirubin 0.00 Indirect Bilirubin 0.1 Aspartate Amino 28 Transf (AST/SGOT) Alanine 32 Aminotransferase (AL T/SGPT) Alkaline Phosphatase 64 Total Protein 6.3 Albumin 3.0 L Globulin 3.30 H Albumin/Globulin 0.90 Ratio Thyroid Stimulating 1.750 Hormone (TSH) Urine Color YELLOW Urine Clarity CLEAR Urine pH 5.0 Urine Specific 1.013 [place] Urine Ketones NEGATIVE Urine Nitrite NEGATIVE Urine Bilirubin NEGATIVE Urine Urobilinogen NEGATIVE Urine Leukocyte NEGATIVE Esterase Urine Microscopic 0 RBC Urine Microscopic 5 WBC Urine Hemoglobin NEGATIVE Urine Glucose NEGATIVE Urine Total Protein 1+ H Urine Opiates Screen Positive Urine Barbiturates Negative Urine Amphetamines Negative Screen Urine Negative Benzodiazepines Screen Urine Cocaine Screen Negative Urine Cannabinoids Negative Bedside Glucose 86 93 Medications Medication Current Medications IV Flush (NS 3 ml) 3 ml PER PROTOCOL IV ; Start 08/12/18 at 22:30 Lorazepam (Ativan) 0.5 mg Q6H PRN IV .ANXIETY; Start 08/12/18 at 22:30 Ondansetron HCl (Zofran Inj) 4 mg Q6H PRN IV NAUSEA/VOMITING; Start 08/12/18 at 22:30 Acetaminophen (Tylenol Tab) 650 mg Q6H PRN PO .PAIN 1-3 OR TEMP; Start 08/12/18 at 22:30 Docusate Sodium (Colace) 100 mg Q12H PRN PO .CONSTIPATION; Start 08/12/18 at 22:30 Bisacodyl (Dulcolax) 5 mg DAILY PRN PO .CONSTIPATION; Start 08/12/18 at 22:30 Atorvastatin Calcium (Lipitor) 80 mg QHS PO ; Start 08/13/18 at 21:00 Bisacodyl (Dulcolax Supp) 10 mg Q24H PRN ND NEEDED; Start 08/13/18 at 04:00 Docusate Sodium (Colace) 100 mg BID PO Last administered on 08/13/18at 09:01; Admin Dose 100 MG; Start 08/13/18 at 09:00 Famotidine (Pepcid) 20 mg QHS PO ; Start 08/13/18 at 21:00 Gabapentin (Neurontin) 600 mg TID PO Last administered on 08/13/18at 09:00; Admin Dose 600 MG; Start 08/13/18 at 09:00 Magnesium Hydroxide (Milk Of Mag) 30 ml Q24H PRN PO NEEDED; Start 08/13/18 at 04:00 Polyethylene Glycol (Miralax) 17 gm DAILY PO Last administered on 08/13/18at 09:02; Admin Dose 17 GM; Start 08/13/18 at 09:00 Saccharomyces Boulardii (Florastor) 250 mg BID PO Last administered on 08/13/18at 09:02; Admin Dose 250 MG; Start 08/13/18 at 09:00 Senna (Senokot) 1 tab QHS PO ; Start 08/13/18 at 21:00 Sertraline HCl (Zoloft) 25 mg DAILY PO Last administered on 08/13/18at 09:01; Admin Dose 25 MG; Start 08/13/18 at 09:00 Tramadol HCl (Ultram) 50 mg Q4H PRN PO PAIN LEVEL 4-7/10 Last administered on 08/13/18at 09:02; Admin Dose 50 MG; Start 08/13/18 at 04:00 Zinc Sulfate (Zinc Sulfate) 220 mg DAILY PO Last administered on 08/13/18at 09:01; Admin Dose 220 MG; Start 08/13/18 at 09:00 Diagnostic Test (Pha) (Accu-Chek) 1 ea 02 XX ; Start 08/14/18 at 02:00 Insulin Aspart (Novolog Insulin Pen) NOVOLOG *MILD* ALGORITHM WITH MEALS BEDTIME SC ; Start 08/13/18 at 08:00 Hydralazine HCl (Apresoline) 10 mg Q4H PRN IV ELEVATED BLOOD PRESSURE; Start 08/13/18 at 04:00 Miscellaneous Information 1 ea NOTE XX ; Start 08/13/18 at 04:00 Glucose (Glutose) 15 gm Q15M PRN PO DECREASED GLUCOSE; Start 08/13/18 at 04:00 Glucose (Glutose) 22.5 gm Q15M PRN PO DECREASED GLUCOSE; Start 08/13/18 at 04:00 Dextrose (D50w Syringe) 25 ml Q15M PRN IV DECREASED GLUCOSE; Start 08/13/18 at 04:00 Dextrose (D50w Syringe) 50 ml Q15M PRN IV DECREASED GLUCOSE; Start 08/13/18 at 04:00 Glucagon (Glucagen) 1 mg Q15M PRN IM DECREASED GLUCOSE; Start 08/13/18 at 04:00 Glucose (Glutose) 15 gm Q15M PRN BUCCAL DECREASED GLUCOSE; Start 08/13/18 at 04:00 Morphine Sulfate (morphine) 2 mg Q4H PRN IV SEVERE PAIN LEVEL 7-10 Last administered on 08/13/18at 14:36; Admin Dose 2 MG; Start 08/13/18 at 12:00 Heparin Sodium (Porcine) (Heparin (5000 Units/1ml)) 5,000 unit BID SC ; Start 08/13/18 at 21:00 Past Medical History reviewed Home Meds Reported Medications Insulin Lispro (Humalog) 100 Unit/1 Ml Cartridge, 0 SQ SLIDING SCALE, EA IF BS 60-149=0 UNIT<60,HYPOGLYCEMIC PROTOCOL AND CALL MD. IF BS 150-199=2 UNITS,200-249=4 UNITS,250-299=6 UNITS,300-349=8 UNITS,350-399=10 UNITS,400+=12 UNITS AND CALL MD. 08/12/18 Zinc Sulfate* (Zinc Sulfate*) 220 Mg Tablet, 220 MG PO DAILY, TAB END DATE 09/12/18 08/12/18 Ascorbic Acid (Vitamin C) 500 Mg Tab, 500 MG PO BID, TAB 08/12/18 Vitamin A Acetate (Vitamin A) 10,000 Unit Tab.subl, 91776 UNIT SL DAILY 08/12/18 Tuberculin,Purif.prot.deriv. (Tubersol) 5 Tub Unit/0.1 Ml Vial, 5 TUB ID Q 10 DAYS, VIAL FOR 11 DAYS READ IN 48HOURS, IF NEGATIVE 2 STEP IN 7 DAYS FROM FIRST DOSE. START DATE 08/07/18 AND END DATE 08/18/18 08/12/18 Tramadol Hcl* (Ultram*) 50 Mg Tablet, 50 MG PO Q4H PRN for PAIN LEVEL 4-7/10, TAB 08/12/18 Sertraline Hcl* (Sertraline Hcl*) 25 Mg Tablet, 25 MG PO DAILY, #30 TAB 08/12/18 Sennosides* (Senna Lax*) 8.6 Mg Tablet, 1 TAB PO QHS, TAB 08/12/18 Amino Acids/Protein Hydrolys (PRO-STAT LIQUID) 30 Ml Liquid.pkt, 30 ML PO DAILY SUGAR FREE 08/12/18 Polyethylene Glycol* (Miralax*) 17 Gm Powd.pack, 17 GM PO DAILY, #30 PACKET 08/12/18 Omeprazole* (Omeprazole*) 20 Mg Capsule.dr, 20 MG PO BID, #60 CAP 08/12/18 Hydrocodone/Acetaminophen (Aylett 5-325 Tablet) 1 Each Tablet, 1 EACH PO Q4H for PAIN 8-10/10, TAB 08/12/18 Nitroglycerin* (Nitroglycerin* SL) 0.4 Mg Tab.subl, 0.4 MG SL Q5MIN PRN for CHEST PAIN, BOTTLE 08/12/18 Multivitamin with Minerals (Multivitamins with Minerals) 1 Each Tablet, 1 EACH PO DAILY, TAB 08/12/18 Metformin Hcl* (Metformin Hcl*) 1,000 Mg Tablet, 1000 MG PO WITH BREAKFAST DINNE, #60 TAB 08/12/18 Melatonin (Melatonin) 3 Mg Tablet.sa, 6 MG PO HS, TAB.SA 08/12/18 Levofloxacin* (Levaquin*) 500 Mg Tablet, 500 MG PO QPM, TAB FOR 7 DAYS,END DATE 08/14/18 08/12/18 Heparin Sodium,Porcine/Pf (HEPARIN SOD 5,000 UNIT/ 0.5 ML) 5,000 Unit/0.5 Ml Vial, 5000 UNIT IJ Q12H, VIAL 08/12/18 Gabapentin* (Gabapentin*) 300 Mg Capsule, 600 MG PO TID, #180 CAP 08/12/18 Saccharomyces Boulardii* (Florastor*) 250 Mg Cap, 250 MG PO BID, CAP 08/12/18 Famotidine* (Famotidine*) 20 Mg Tablet, 20 MG PO QHS, #30 TAB 08/12/18 Docusate Sodium* (Docusate Sodium*) 100 Mg Capsule, 100 MG PO BID, #60 CAP 08/12/18 Cranberry Fruit (CRANBERRY) 450 Mg Tablet, 450 MG PO DAILY, TAB 08/12/18 Carvedilol* (Carvedilol*) 25 Mg Tablet, 25 MG PO BID, #60 TAB HOLD FOR SBP<110 OR HR<60 08/12/18 Captopril* (Captopril*) 50 Mg Tablet, 50 MG PO TID, #90 TAB 08/12/18 Na Phos,M-B/Na Phos,Di-Ba (Fleet Enema Extra) Unknown Strength Enema, 118 ML RC Q 3RD D, ENEMA 08/12/18 Bisacodyl* (Bisacodyl*) 10 Mg Supp, 10 MG ND Q24H PRN for NEEDED, SUPP 08/12/18 Magnesium Hydroxide* (Milk Of Magnesia*) 400 Mg/5 Ml Oral.susp, 30 ML PO Q24H PRN for NEEDED, ML 08/12/18 Insulin Glargine,Hum.rec.anlog (Basaglar Kwikpen U-100) 100 Unit/1 Ml Insuln.pen, 21 UNIT SC Q12H, EA 08/12/18 Atorvastatin* (Atorvastatin*) 80 Mg Tablet, 80 MG PO QHS, #30 TAB 08/12/18 Arginine/Ascorbate Sod/Joan AC (Arginaid Powder) 1 Each Powd.pack, 1 EACH PO BID 08/12/18 Amlodipine Besylate* (Norvasc*) 5 Mg Tablet, 5 MG PO QHS, TAB HOLD FOR SBP<110 08/12/18 Acetaminophen* (Acetaminophen*) 325 Mg Tablet, 650 MG PO Q4H PRN for MILD PAIN LEVEL 1-3, #30 TAB 08/12/18 Medications Current Medications IV Flush (NS 3 ml) 3 ml PER PROTOCOL IV ; Start 08/12/18 at 22:30 Lorazepam (Ativan) 0.5 mg Q6H PRN IV .ANXIETY; Start 08/12/18 at 22:30 Ondansetron HCl (Zofran Inj) 4 mg Q6H PRN IV NAUSEA/VOMITING; Start 08/12/18 at 22:30 Acetaminophen (Tylenol Tab) 650 mg Q6H PRN PO .PAIN 1-3 OR TEMP; Start 08/12/18 at 22:30 Docusate Sodium (Colace) 100 mg Q12H PRN PO .CONSTIPATION; Start 08/12/18 at 22:30 Bisacodyl (Dulcolax) 5 mg DAILY PRN PO .CONSTIPATION; Start 08/12/18 at 22:30 Atorvastatin Calcium (Lipitor) 80 mg QHS PO ; Start 08/13/18 at 21:00 Bisacodyl (Dulcolax Supp) 10 mg Q24H PRN ND NEEDED; Start 08/13/18 at 04:00 Docusate Sodium (Colace) 100 mg BID PO Last administered on 08/13/18at 09:01; Admin Dose 100 MG; Start 08/13/18 at 09:00 Famotidine (Pepcid) 20 mg QHS PO ; Start 08/13/18 at 21:00 Gabapentin (Neurontin) 600 mg TID PO Last administered on 08/13/18at 09:00; Admi n Dose 600 MG; Start 08/13/18 at 09:00 Magnesium Hydroxide (Milk Of Mag) 30 ml Q24H PRN PO NEEDED; Start 08/13/18 at 04:00 Polyethylene Glycol (Miralax) 17 gm DAILY PO Last administered on 08/13/18at 09:02; Admin Dose 17 GM; Start 08/13/18 at 09:00 Saccharomyces Boulardii (Florastor) 250 mg BID PO Last administered on 08/13/18at 09:02; Admin Dose 250 MG; Start 08/13/18 at 09:00 Senna (Senokot) 1 tab QHS PO ; Start 08/13/18 at 21:00 Sertraline HCl (Zoloft) 25 mg DAILY PO Last administered on 08/13/18at 09:01; Admin Dose 25 MG; Start 08/13/18 at 09:00 Tramadol HCl (Ultram) 50 mg Q4H PRN PO PAIN LEVEL 4-7/10 Last administered on 08/13/18at 09:02; Admin Dose 50 MG; Start 08/13/18 at 04:00 Zinc Sulfate (Zinc Sulfate) 220 mg DAILY PO Last administered on 08/13/18at 09:01; Admin Dose 220 MG; Start 08/13/18 at 09:00 Diagnostic Test (Pha) (Accu-Chek) 1 ea 02 XX ; Start 08/14/18 at 02:00 Insulin Aspart (Novolog Insulin Pen) NOVOLOG *MILD* ALGORITHM WITH MEALS BEDTIME SC ; Start 08/13/18 at 08:00 Hydralazine HCl (Apresoline) 10 mg Q4H PRN IV ELEVATED BLOOD PRESSURE; Start 08/13/18 at 04:00 Miscellaneous Information 1 ea NOTE XX ; Start 08/13/18 at 04:00 Glucose (Glutose) 15 gm Q15M PRN PO DECREASED GLUCOSE; Start 08/13/18 at 04:00 Glucose (Glutose) 22.5 gm Q15M PRN PO DECREASED GLUCOSE; Start 08/13/18 at 04:00 Dextrose (D50w Syringe) 25 ml Q15M PRN IV DECREASED GLUCOSE; Start 08/13/18 at 04:00 Dextrose (D50w Syringe) 50 ml Q15M PRN IV DECREASED GLUCOSE; Start 08/13/18 at 04:00 Glucagon (Glucagen) 1 mg Q15M PRN IM DECREASED GLUCOSE; Start 08/13/18 at 04:00 Glucose (Glutose) 15 gm Q15M PRN BUCCAL DECREASED GLUCOSE; Start 08/13/18 at 04:00 Morphine Sulfate (morphine) 2 mg Q4H PRN IV SEVERE PAIN LEVEL 7-10 Last administered on 08/13/18at 14:36; Admin Dose 2 MG; Start 08/13/18 at 12:00 Heparin Sodium (Porcine) (Heparin (5000 Units/1ml)) 5,000 unit BID SC ; Start 08/13/18 at 21:00 Allergies: Coded Allergies: No Known Allergy (Unverified , 08/12/18) Past Surgical History reviewed Social History reviewed Alcohol Use: none Smoking Status: Never smoker Drug Use: none TAMMI FONSECA NP Aug 13, 2018 15:17 SHIVANI RODRIGUEZ Aug 13, 2018 17:15
--- NOTE | 2018-08-13 16:06 | CONS ---
DATE OF ADMISSION: 08/12/2018 DATE OF CONSULTATION: TYPE OF CONSULTATION: Nephrology. REASON FOR CONSULTATION: Acute kidney injury. PHYSICIAN REQUESTING CONSULT: Marybeth Young MD HISTORY OF PRESENT ILLNESS: This is a 58-year-old male with past medical history of chronic kidney d isease, unknown baseline creatinine, history of hypertension, history of diabetes, history of dyslipi demia who presents to [facility] with right-sided weakness. The patient also has a previous history of multiple strokes. He is residing at [facility] and came to [facility] with symptoms of right upper extremity paralysis which happened more than 24 hours ago. The patient has had previous history of CVA resulting in left upper extremity contracture. The pat ient upon arrival had a CT scan and MRI of the brain which showed findings of evidence of old right i nternal carotid artery infarcts, old bilateral focal inferior cerebellar infarcts and occlusion of th e right internal carotid artery. The patient was admitted to telemetry for evaluation. In terms of patient's renal history, the patient states he has underlying chronic kidney disease. He does not know his baseline creatinine or EGFR. The patient on admission, creatinine 1.66 mg/dL. Th e patient denies any hemoptysis, hematemesis or hematochezia. PAST MEDICAL HISTORY: History of CKD, history of CVA, history of diabetes, history of hypertension, history of dyslipidemia. PAST SURGICAL HISTORY: The patient is status post left BKA. FAMILY HISTORY: No family history of kidney disease. SOCIAL HISTORY: Does not drink, smoke or do drugs. MEDICATIONS: Have been reviewed. REVIEW OF SYSTEMS: A 14-point review of systems was conducted. Pertinent positives stated in HPI, o therwise negative. PHYSICAL EXAMINATION: VITAL SIGNS: Blood pressure is 172/77, respiration 18, pulse 68, temperature 98.0. HEENT: Head is normocephalic. NECK: Supple. HEART: Regular rate. LUNGS: Show diminished breath sounds at base. ABDOMEN: Soft, nontender to palpation without rebound or guarding. EXTREMITIES: Noted for left BKA. DERMATOLOGIC: No rashes. MUSCULOSKELETAL: No joint effusion. NEUROLOGIC: The patient has right-sided weakness and left upper extremity contracture. LABORATORY DATA: Show sodium 143, potassium 3.9, BUN 37, creatinine 1.36. White count 6.6, hemoglob in 8.1, platelet count 220. IMAGING STUDIES: Reviewed. ASSESSMENT AND PLAN: This is a 58-year-old male who presents with: 1. Nonoliguric acute kidney injury on top of chronic kidney disease. Etiology of acute kidney injur y is likely secondary to hemodynamics, KRISTEL inhibitor effect. No evidence of glomerulonephritis or va sculitis. Low suspicion for tubular injury. The patient's renal function has improved in last 24 ho urs. Recommendation at this point is to continue current medical management. We would monitor hemod ynamics closely, avoiding significant fluctuations. If renal function should remain stable, okay to resume the patient on KRISTEL inhibitor. Otherwise, continue current treatment plan, supportive care, re julia dose all meds. Please note, the patient's urinalysis was reviewed. There is no evidence of ac tive sediment. 2. Chronic kidney disease likely secondary to diabetic nephropathy, possible hypertension. The delma ent is currently in acute kidney injury as stated above. Plan is to quantify the patient's proteinur ia. We would otherwise continue disease factor modification. We will consider reintroducing KRISTEL inh ibitor if renal function remains stable. 3. Metabolic acidosis. Etiology is likely due to acute kidney injury, chronic kidney disease. We w ill continue to monitor bicarbonate levels. 4. Mineral bone disorder. Monitor calcium and phosphorus levels. 5. Anemia. Monitor hemoglobin and hematocrit levels. We will check iron panel and ferritin level. 6. Transient ischemic attack. The patient is clinically improving. Continue to monitor. MRI was r eviewed. 7. Occluded right internal carotid artery. The patient has prior history of endarterectomy. We lopez l continue to monitor. Follow up with vascular surgery. 8. History of cerebrovascular accident. Continue medical management. 9. Hypertension. Blood pressure is currently elevated. Continue current blood pressure regimen. I f renal function remains stable, we would reintroduce KRISTEL inhibitor. Thank you, Dr. Young, for this interesting consult. It will be a pleasure to follow the patient with y ou throughout the hospital course. Dictated By: MILLY BURGOS DO NR/NTS Conf#: [id number] DID#: [id number] CC: DAMON MARTIN MD;*EndCC*
[2018-08-13] MEDS: ASPIRIN (EC) 81 MG TAB PO SCH (17:33)
[2018-08-13] MEDS: ATORVASTATIN 80 MG TAB PO SCH (20:15)
[2018-08-13] MEDS: SENNA TAB PO SCH (20:16)
[2018-08-13] MEDS: FAMOTIDINE 20 MG TAB PO SCH (20:16)
[2018-08-13] MEDS: HEPARIN 5,000 UNIT/1 ML VIAL SC SCH (20:28)
--- NOTE | 2018-08-13 21:22 | RADRPT ---
Echocardiogram Report Patient Name: ARTEM SNOWDENPatient ID: [id number] : 1960 (58y 6m)Study Date: 08/13/2018 7:38:51 AM Gender: MAccession #: [id number] Tech: IA Location: Ref.Physician: DAMON MARTIN Height(Cm): BSA: Weight(Kg): Quality: Technically Difficult StudyAccount #: Procedures: Echocardiographic Report: Transthoracic echocardiogram with complete 2D, M-Mode, and doppler examination. Indications: Possible stroke with bubble study. Measurements: 2D/M Mode Doppler Measurement Value Normal Range Measurement Value Normal Range LVIDd 2D 3.9 [ 4.2 - 5.8 ] cm AV Peak Elvin 1.2 [ 100.0 - 170.0 ] cm/sec LVIDs 2D 2.8 [ 2.5 - 4.0 ] cm AV Peak PG 5.0 [ 2.0 - 9.0 ] mmHg LVPWd 2D 1.2 [ 0.6 - 1.0 ] cm LVOT Peak Elvin 0.9 [ 70.0 - 110.0 ] cm/sec IVSd 2D 1.2 [ 0.6 - 1.0 ] cm LVOT Peak PG 3.0 [ 2.0 - 6.0 ] mmHg AoR Diam 2D 3.3 [ 2.6 - 3.4 ] cm MV E Peak Elvin 0.9 [ 60.0 - 130.0 ] cm/sec EDV 2D 66.3 [ 62.0 - 150.0 ] ml MV A Peak Elvin 1.0 [ 100.0 - 120.0 ] cm/sec ESV 2D 28.8 [ 21.0 - 61.0 ] ml MV E/A 1.0 [ 0.8 - 1.5 ] ratio EF 2D 56.6 [ 52.0 - 72.0 ] percent MV Decel Time 261 [ 104 - 258 ] msec LA Dimen 2D 3.7 [ 3.0 - 4.0 ] cm Lat E` Elvin 0.1 [ 10.0 - 15.0 ] cm/sec Lateral E/E` 11.0 [ 1.0 - 2.0 ] ratio Med E` Elvin 0.1 cm/sec MV E/A 1.0 [ 0.8 - 1.5 ] ratio Findings: Left Ventricle: Normal left ventricular systolic function. Normal left ventricular cavity size. Normal left ventricular wall thickness. Ejection fraction is visually estimated at 60 %. Tissue Doppler/Mitral Doppler indices are consistent with impaired relaxation (Stage I diastolic dysfunction). Right Ventricle: Normal right ventricular size. Normal right ventricular systolic function. Left Atrium: The left atrium is normal in size. Right Atrium: The right atrium is normal in size. Atrial Septum: Bubble study was performed with and with out valsalva indicating no evidence of intra atrial shunt. Mitral Valve: Mitral valve leaflets appear mildly thickened. Mild mitral annular calcification. Trace mitral regurgitation. Aortic Valve: Normal appearance of the aortic valve. No significant aortic stenosis or insufficiency. Tricuspid Valve: Normal appearance of the tricuspid valve. Unable to obtain RVSP due to minimal presence of tricuspid regurgitation. Pulmonic Valve: Normal pulmonic valve appearance. Pericardium: Normal pericardium with no significant pericardial effusion. Aorta: Normal aortic root. IVC: Normal size and normal respiratory collapse consistent with normal right atrial pressure. Conclusions: Normal left ventricular systolic function. Normal left ventricular cavity size. Normal left ventricular wall thickness. Ejection fraction is visually estimated at 60 %. Tissue Doppler/Mitral Doppler indices are consistent with impaired relaxation (Stage I diastolic dysfunction). Bubble study was performed with and with out valsalva indicating no evidence of intra atrial shunt. Mitral valve leaflets appear mildly thickened. Mild mitral annular calcification. Trace mitral regurgitation. Normal appearance of the tricuspid valve. Unable to obtain RVSP due to minimal presence of tricuspid regurgitation. Electronically Signed By: Welsey Bernal 2018-08-13 21:21:30 PDT
[2018-08-14 02:00] VITALS: BP 133/66; PULSE 69; RESP 17
[2018-08-14] MEDS ORDERED: ACCU-CHEK XX SCH (02:00)
[2018-08-14] MEDS: morphine 2 MG INJ IV PRN ×3 (06:05→18:12)
[2018-08-14 07:20] VITALS: BP 119/59; PULSE 61; RESP 18
[2018-08-14] MEDS: INSULIN ASPART [NOVOLOG] 3 ML PEN SC SCH ×4 (07:48→20:40)
[2018-08-14] MEDS: ZINC SULFATE 220 MG CAP PO SCH (08:33)
[2018-08-14] MEDS: SERTRALINE 50 MG TAB PO SCH (08:33)
[2018-08-14] MEDS: SACCHAROMYCES BOULARDII 250 MG CAP PO SCH ×2 (08:34→20:36)
[2018-08-14] MEDS: ASPIRIN (EC) 81 MG TAB PO SCH (08:34)
[2018-08-14] MEDS: GABAPENTIN 300 MG CAP PO SCH ×3 (08:34→20:36)
[2018-08-14] MEDS: traMADol 50 MG TAB PO PRN ×3 (08:35→20:36)
[2018-08-14] MEDS: POLYETHYLENE GLYCOL 17 GM PACKET PO SCH ×2 (08:35→08:57)
[2018-08-14] MEDS: DOCUSATE SODIUM 100 MG CAP PO SCH ×2 (08:35→20:33)
[2018-08-14] MEDS: HEPARIN 5,000 UNIT/1 ML VIAL SC SCH ×2 (08:43→20:51)
--- NOTE | 2018-08-14 09:30 | PN ---
DATE: 08/14/2018 SUBJECTIVE: The patient is stable, no events overnight. OBJECTIVE: VITAL SIGNS: Blood pressure is 119/59, respirations 18, pulse 61, temperature 98.2. HEENT: Head is normocephalic. NECK: Supple. HEART: Regular rate. LUNGS: Show diminished breath sounds at the base. ABDOMEN: Soft, nontender to palpation without rebound or guarding. EXTREMITIES: Negative for clubbing, cyanosis. Positive left BKA. DERMATOLOGIC: No rashes. NEUROLOGIC: No focal deficits. MEDICATIONS: Reviewed. LABORATORY DATA: Sodium 143, potassium 4.6, BUN 33, creatinine 1.26. The patient's urinalysis shows FENa greater than 1%, protein creatinine ratio approximately 1 gram per gram of creatinine. ASSESSMENT AND PLAN: 1. Nonoliguric acute kidney injury on top of chronic kidney disease. Etiology of acute kidney injur y is secondary to hemodynamics, possible KRISTEL inhibitor effect. The patient's renal function has been improving with supportive care. At this point, continue current treatment plan, renally dose all me dicines and avoid nephrotoxins. If renal function remains stable, we would resume KRISTEL inhibitor. 2. Chronic kidney disease likely secondary to diabetic nephropathy. The patient is currently in acu te kidney injury as stated above. The patient's proteinuria is approximately 1 gram per gram of crea tinine. We would recommend to continue disease factor modification. We will reintroduce KRISTEL inhibit or once renal function is stable. 3. Metabolic acidosis, improving. Continue to monitor. 4. Anemia. Monitor hemoglobin and hematocrit levels. 5. Mineral bone disorder. Monitor calcium and phosphorus levels. 6. Transient ischemic attack. The patient is clinically improving. Continue medical management. 7. Occluded right internal carotid artery. The patient has a history of endarterectomy. Continue t o monitor. Follow up with vascular surgery. 8. History of cerebrovascular accident. Continue medical management. 9. Hypertension. Continue current blood pressure regimen. Dictated By: MILLY MASSEY/NTS Conf#: [id number] DID#: [id number] CC: DAMON MARTIN MD;*EndCC*
--- NOTE | 2018-08-14 10:36 | PDOCDIS ---
Discharge Instructions CONDITION [id number] Patient Condition: [id number] Good HOME CARE INSTRUCTIONS: Kpdim3Cc Diet Instructions: [id number] Reduced Calorie ACTIVITY: [id number] Activity Restrictions: [id number] No Restrictions FOLLOW UP/APPOINTMENTS Follow-up Plan FOLLOW UP WITH YOUR PCP AND VASCULAR SURGEON IN 1-2 WEEKS BRIANDA ROBBINS Aug 14, 2018 10:36
[2018-08-14 11:21] VITALS: BP 189/83; PULSE 62; RESP 19
[2018-08-14 11:35] VITALS: BP 140/70
--- NOTE | 2018-08-14 12:42 | DS ---
Date/Time of Note Date/Time of Note DATE: 08/14/18 TIME: 12:35 Discharge Summary Admission/Discharge Info Admit Date/Time Aug 12, 2018 at 23:52 Discharge Date/Time August 14, 2018 Discharge Diagnosis 1. TIA -symptoms are completely resolved at this time -patient is high risk for strokes and does have carotid aa disease, patient can follow-up with his vascular surgeon as an outpatient 2. 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 -this was about 1 year ago, -Consultation with Dr Kim appreciated, patient will ultimately need to follow-up with his own vascular surgeon at [facility], further workup with vascular surgeon -Patient also has GRACE and will refrain from further diagnostics at this time 3. 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 Severe PAD -s/p recent L BKA after multiple angiograms and toe amputations and recent treatment, completed 1 month ago for osteomyelitis in the stump -patient still has carleen in L stump -also on chronic Devils [place]bow for phantom limb pain 5. remote smoker: quit about 1 year ago 6. GRACE on CKD -patient states he has CKD but still gets multiple contrast studies -Nephrology consultation appreciated -Creatinine stable Patient Condition: Good Hospital Course Patient is a 58-year-old male with history of severe PAD, CVA with residual left sided weakness. Patient does have a history of CEA on the right as well as a left-sided BKA. Patient does follow-up with a vascular surgeon at [facility]. Patient presented with acute weakness with concerns for TIA, MRI of the brain showed chronic findings but no acute changes. Patient was seen by neurology and vascular surgery with recommendation for ultimate follow-up with his own vascular surgeon for further intervention. Patient did have a carotid ultrasound which showed Occluded right ICA. 50-69% stenosis in the left ICA. Patient did have possible acute renal failure on CKD and was seen by nephrology, at this time benefits of further diagnostics in house do not outweigh risks of worsening renal function especially considering the patient will need to ultimately follow up with his own vascular surgeon there is no eminent need for vascular intervention at this time. Patient does have good support at home with a caregiver and family was stable for DC. On the day of discharge patient vitals, labs and physical exam are stable, patient had no acute weakness. Home Meds Reported Medications Insulin Lispro (Humalog) 100 Unit/1 Ml Cartridge, 0 SQ SLIDING SCALE, EA IF BS 60-149=0 UNIT<60,HYPOGLYCEMIC PROTOCOL AND CALL MD. IF BS 150-199=2 UNITS,200-249=4 UNITS,250-299=6 UNITS,300-349=8 UNITS,350-399=10 UNITS,400+=12 UNITS AND CALL MD. 08/12/18 Zinc Sulfate* (Zinc Sulfate*) 220 Mg Tablet, 220 MG PO DAILY, TAB END DATE 09/12/18 08/12/18 Ascorbic Acid (Vitamin C) 500 Mg Tab, 500 MG PO BID, TAB 08/12/18 Vitamin A Acetate (Vitamin A) 10,000 Unit Tab.subl, 33530 UNIT SL DAILY 08/12/18 Tuberculin,Purif.prot.deriv. (Tubersol) 5 Tub Unit/0.1 Ml Vial, 5 TUB ID Q 10 DAYS, VIAL FOR 11 DAYS READ IN 48HOURS, IF NEGATIVE 2 STEP IN 7 DAYS FROM FIRST DOSE. START DATE 08/07/18 AND END DATE 08/18/18 08/12/18 Tramadol Hcl* (Ultram*) 50 Mg Tablet, 50 MG PO Q4H PRN for PAIN LEVEL 4-7/10, TAB 08/12/18 Sertraline Hcl* (Sertraline Hcl*) 25 Mg Tablet, 25 MG PO DAILY, #30 TAB 08/12/18 Sennosides* (Senna Lax*) 8.6 Mg Tablet, 1 TAB PO QHS, TAB 08/12/18 Amino Acids/Protein Hydrolys (PRO-STAT LIQUID) 30 Ml Liquid.pkt, 30 ML PO DAILY SUGAR FREE 08/12/18 Polyethylene Glycol* (Miralax*) 17 Gm Powd.pack, 17 GM PO DAILY, #30 PACKET 08/12/18 Omeprazole* (Omeprazole*) 20 Mg Capsule.dr, 20 MG PO BID, #60 CAP 08/12/18 Hydrocodone/Acetaminophen (Devils [place]bow 5-325 Tablet) 1 Each Tablet, 1 EACH PO Q4H for PAIN 8-10/10, TAB 08/12/18 Nitroglycerin* (Nitroglycerin* SL) 0.4 Mg Tab.subl, 0.4 MG SL Q5MIN PRN for CHEST PAIN, BOTTLE 08/12/18 Multivitamin with Minerals (Multivitamins with Minerals) 1 Each Tablet, 1 EACH PO DAILY, TAB 08/12/18 Metformin Hcl* (Metformin Hcl*) 1,000 Mg Tablet, 1000 MG PO WITH BREAKFAST DINNE, #60 TAB 08/12/18 Melatonin (Melatonin) 3 Mg Tablet.sa, 6 MG PO HS, TAB.SA 08/12/18 Levofloxacin* (Levaquin*) 500 Mg Tablet, 500 MG PO QPM, TAB FOR 7 DAYS,END DATE 08/14/18 08/12/18 Heparin Sodium,Porcine/Pf (HEPARIN SOD 5,000 UNIT/ 0.5 ML) 5,000 Unit/0.5 Ml Vial, 5000 UNIT IJ Q12H, VIAL 08/12/18 Gabapentin* (Gabapentin*) 300 Mg Capsule, 600 MG PO TID, #180 CAP 08/12/18 Saccharomyces Boulardii* (Florastor*) 250 Mg Cap, 250 MG PO BID, CAP 08/12/18 Famotidine* (Famotidine*) 20 Mg Tablet, 20 MG PO QHS, #30 TAB 08/12/18 Docusate Sodium* (Docusate Sodium*) 100 Mg Capsule, 100 MG PO BID, #60 CAP 08/12/18 Cranberry Fruit (CRANBERRY) 450 Mg Tablet, 450 MG PO DAILY, TAB 08/12/18 Carvedilol* (Carvedilol*) 25 Mg Tablet, 25 MG PO BID, #60 TAB HOLD FOR SBP<110 OR HR<60 08/12/18 Captopril* (Captopril*) 50 Mg Tablet, 50 MG PO TID, #90 TAB 08/12/18 Na Phos,M-B/Na Phos,Di-Ba (Fleet Enema Extra) Unknown Strength Enema, 118 ML RC Q 3RD D, ENEMA 08/12/18 Bisacodyl* (Bisacodyl*) 10 Mg Supp, 10 MG NM Q24H PRN for NEEDED, SUPP 08/12/18 Magnesium Hydroxide* (Milk Of Magnesia*) 400 Mg/5 Ml Oral.susp, 30 ML PO Q24H PRN for NEEDED, ML 08/12/18 Insulin Glargine,Hum.rec.anlog (Basaglar Anne Mariepen U-100) 100 Unit/1 Ml Insuln.pen, 21 UNIT SC Q12H, EA 08/12/18 Atorvastatin* (Atorvastatin*) 80 Mg Tablet, 80 MG PO QHS, #30 TAB 08/12/18 Arginine/Ascorbate Sod/Joan AC (Arginaid Powder) 1 Each Powd.pack, 1 EACH PO BID 08/12/18 Amlodipine Besylate* (Norvasc*) 5 Mg Tablet, 5 MG PO QHS, TAB HOLD FOR SBP<110 08/12/18 Acetaminophen* (Acetaminophen*) 325 Mg Tablet, 650 MG PO Q4H PRN for MILD PAIN LEVEL 1-3, #30 TAB 08/12/18 Follow-up Plan FOLLOW UP WITH YOUR PCP AND VASCULAR SURGEON IN 1-2 WEEKS Primary Care Provider Not On Staff Doctor Time spent on discharge: > 30 minutes BRIANDA ROBBINS Aug 14, 2018 12:42
--- NOTE | 2018-08-14 13:37 | CONS ---
Assessment/Plan Assessment/Plan Hospital Course 58 yo M with hx of multiple strokes, L BKA and other comorbidities who presents for evaluation of R sided weakness and numbness x several hours... for which neurology is consulted. The clinical picture was most ominously concerning for acute stroke; MRI brain is, though, reassuringly without acute intracranial pathology.. Recrudescence in the context of acute toxic-metabolic dysfunction is additionally considered.. Somatization is a Dx of exclusion... MRI/CUS is notable for R ICA occlusion..and severe L ICA stenosis. P: Cont asa daily for secondary stroke prevention; lipids are at goal.. PT/OT/ST as necessary Other medical management and supportive care per primary Vascular surgery evaluation of asymptomatic L carotid stenosis; which may be done as an outpatient Will follow clinically Consultation Date/Type/Reason Admit Date/Time Aug 12, 2018 at 23:52 Type of Consult Neurology Requesting Provider: BRIAN ALLEN Date/Time of Note DATE: 08/14/18 TIME: 13:36 24 HR Interval Summary Free Text/Dictation Continues acute care. Pt is without new complaints at this time. Exam Vital Signs Vitals Vital Signs Date Temp Pulse Resp B/P (MAP) Pulse Ox O2 O2 Flow FiO2 Time Delivery Rate 08/14/18 140/70 11:35 (93) 08/14/18 98.2 62 19 96 11:21 08/13/18 Room Air 16:21 Intake and Output 08/13/18 08/13/18 08/14/18 1515:00 23:00 07:00 IntakeIntake Total 650 ml 350 ml OutputOutput Total 1401 ml 1800 ml BalanceBalance -751 ml -1450 ml Exam PE: Gen Appearance: No Apparent Distress HEENT: Normocephalic Cardiovascular: Regular rate Abdomen: Soft Extremities: L BKA; Has L leg brace NE: The patient was alert and grossly oriented. Language was normal. Thought process not quite linear. Fund of knowledge was adequate. Pupils were equal and reactive to light. There was no afferent pupillary defect. Visual kumar were normal. Funduscopic examination was limited. Extra-ocular movements were full. Ptosis was absent. There was no nystagmus. Facial sensation was normal. Face was symmetric with normal strength. Hearing was intact. Palate movements were normal. Neck strength was normal. There was normal tongue bulk and speed of movement. Tone was normal. Muscle bulk was normal. I did not see fasciculations. Arms and R leg was strong. Vibration sensation was normal. Temperature and pinprick sensation was normal. Rapid alternating movements were normal. There was no dysmetria. There was no intention tremor. Gait was deferred due to bedrest. Arm and leg reflexes were wnl, where they could be elicited.. Cabrera's sign was absent. Plantar response was flexor. TAMMI FONSECA NP Aug 14, 2018 13:37
[2018-08-14 15:18] VITALS: BP 158/70; PULSE 72; RESP 19
[2018-08-14 19:33] VITALS: BP 156/71; PULSE 74; RESP 18
[2018-08-14] MEDS: ATORVASTATIN 80 MG TAB PO SCH (20:36)
[2018-08-14] MEDS: FAMOTIDINE 20 MG TAB PO SCH (20:36)
[2018-08-14] MEDS: SENNA TAB PO SCH (20:38)
== END 2018-08-14 21:43 | DRG 69 ==
LOC: E/R 20:00 → 6WM 22:06 → OBSVTOIN 23:52
PROVIDERS: ADMIT Family Medicine; ATTEND Family Medicine
DX: G45.9 Transient cerebral ischemic attack, unspecified (principal); N17.9 Acute kidney failure, unspecified; E87.2 Acidosis; I12.0 Hypertensive chronic kidney disease with stage 5 chronic kidney disease or end stage renal disease; I69.954 Hemiplegia and hemiparesis following unspecified cerebrovascular disease affecting left non-dominant side; Z89.512 Acquired absence of left leg below knee; E11.8 Type 2 diabetes mellitus with unspecified complications; F41.9 Anxiety disorder, unspecified; E78.5 Hyperlipidemia, unspecified; D64.9 Anemia, unspecified; I73.9 Peripheral vascular disease, unspecified; N18.9 Chronic kidney disease, unspecified; I69.998 Other sequelae following unspecified cerebrovascular disease; Z87.891 Personal history of nicotine dependence; G54.6 Phantom limb syndrome with pain; I65.22 Occlusion and stenosis of left carotid artery
CPT/HCPCS: 70450; 70551; 71045; 80048; 80053; 80061; 80307; 81001; 81003; 82043; 82962; 83036; 83735; 84100; 84155; 84300; 84443; 84484; 85025; 85610; 85730; 87081; 92610; 93005; 93306; 93880; 97110; 97163; 97530; G0378; J0360; J1644; J1815; J2270; J3475; J7040